=== PATIENT | male | born 1965 | race Two or more races ===

== ENCOUNTER 2017-01-02 17:21 | Inpatient (IN) | payer OTHER ==
--- NOTE | 2017-01-02 17:51 | EDPHY ---
H & P Stated Complaint: labs at pc/anemic/leg swelling/weak Source: Patient, Family, Nutrition Counselor Exam Limitations: Language barrier - Personal History Current Tetanus/Diphtheria Vaccine: Yes - Medical/Surgical History Hx Asthma: No Hx Chronic Respiratory Disease: No Hx Diabetes: Yes Hx Cardiac Disease: No Hx Renal Disease: Yes Hx Cirrhosis: No Hx Alcoholism: No Hx HIV/AIDS: No Hx Splenectomy or Spleen Trauma: No Other PMH: Diabetes - Social History Smoking Status: Never smoked Alcohol Use: None Drug Use: None Time Seen by Provider: 01/02/17 17:46 HPI/ROS: CHIEF COMPLAINT: Sent by [facility] HISTORY OF PRESENT ILLNESS: 51-year-old insulin-dependent diabetic presents to the emergency department sent by [facility]. Patient was seen yesterday for a 5 day history of weakness, leg swelling, fatigue and shortness of breath. Patient reports abdominal distention and black stools over the last 5 days. He reports a normal appetite, no nausea or vomiting, no abdominal pain, no diarrhea. Patient feels cold, subjective fevers and chills. No cough. Patient denies drinking alcohol, no drug use, he does not smoke cigarettes. Patient had labs drawn [facility] yesterday and they called him today telling him to come to the emergency department. Patient had a hemoglobin of 6.0 and a creatinine of 18. Potassium was 5.7. Patient reports difficulty breathing with lying flat. REVIEW OF SYSTEMS: A comprehensive 10 point review of systems is otherwise negative aside from elements mentioned in the history of present illness. (Eulalia Gonzalez) - Physical Exam Exam: Physical Exam Gen: Alert and Oriented, short of breath, pale HEENT: PERRL, dry mucous membranes NECK: No JVD CV: Tachycardic rate and regular rhythm PULM: Expiratory wheezes bilateral lower lobes ABDOMEN: soft, non tender to palpation, BS present BACK: No CVA tenderness NEURO: Neurologically grossly intact EXTREMITIES: Edema bilateral lower extremities SKIN: no rash or break in skin on exposed skin PSYCH: answers questions appropriately. (Eulalia Gonzalez) Constitutional: Initial Vital Signs Temperature (C) 36.6 C 01/02/17 17:38 Heart Rate 104 H 01/02/17 17:38 Respiratory Rate 22 H 01/02/17 17:38 Blood Pressure 161/106 H 01/02/17 17:38 O2 Sat (%) 96 01/02/17 17:38 O2 Delivery Mode Nasal Cannula O2 (L/minute) 2 Allergies/Adverse Reactions: No Known Allergies Allergy (Verified 01/02/17 17:38) Home Medications: Medication Instructions Recorded Famotidine [Pepcid] 40 mg PO DAILY #20 tab 01/19/12 Lisinopril [Zestril 10 mg] 10 mg PO DAILY 01/19/12 Prednisone 60 mg PO DAILY #12 01/19/12 metFORMIN HCL [Glucophage 500 mg 500 mg PO .ENTER W/MEAL 01/19/12 (*)] Medical Decision Making - Diagnostics Imaging: Chest x-ray independently reviewed by me Impression: Bibasilar consolidation with cardiomegaly and peribronchial thickening, which could be related to CHF or bronchitis with effusions and basilar atelectasis/pneumonia. Dictated By: Derrick Hdz MD (Eulalia Gonzalez) ED Course/Re-evaluation: 1899-Report passed on to Dr. Little at the end of my shift. (Eulalia Gonzalez) 1803: I did see and evaluate this patient. Patient here with acute renal failure BUN over 100 creatinine of 12 elevated potassium. Clinically on exam he does have evidence of anasarca and volume overload he is hemodynamically stable at this time. At this time I will be consulting Nephrology. Will obtain an EKG to evaluate for hyperacute T-waves. Patient be placed on full environmental monitoring technician for close monitoring. He is in no respiratory distress at this time. His main complaint is generalized weakness and bilateral lower extremity swelling. I-STAT blood work reviewed. Will obtain serum labs, he will be gently hydrated , will need a Coombs for strict ins and outs. Will need to be admitted for dialysis. May need blood transfusion.Patient is still making urine. Patient also reports black tarry stool. Will obtain a occult guaic stool and do rectal exam. Patient be typed and screen as he may need blood transfusion his hemoglobin is low. Critical Care: Total Critical Care Time Spent Managing this Patient: 65 Minutes. This time was spent Exclusively with this patient. This Care was exclusive of procedures. The Organ System/life at risk was Renal Failure. This Patient was in Critical Condition because renal failure, acidosis, electrolyte abnormality, anemia, uremia, hyperglycemia, hypertension 1818: Spoke with Nephrology: Dr. Cox, who would like a bladder scan done, Coombs placement, strict in and outs. Will see and evaluate the patient. EKG interpretation by me on record in [employer] system. Impression time of EKG 18 10, this is sinus tachycardia rate of 105, there is no acute peaked T- waves. There is no widended of intervals. 183: Spoke with Dr. Cox explained to him that there is only 78 cc in his bladder scan. Coombs will be placed. We will treat his hyperkalemia with 1 g of calcium, Kayexalate and bicarb. Chemistry is pending at this time. Occult blood is pending. Patient be admitted to PCU with full telemetry. No indication the patient needs ICU admission at this time. 184: Spoke with the hospitalist service Dr. Cotto who agrees to admit this patient to PCU with full telemetry. This time patient is hemodynamically stable no acute distress. Stable for admission to PCU. Nephrology has been consulted. Patient's hyperkalemia has been aggressively treated here in the emergency room with sodium bicarb, calcium, Kayexalate. (Lucio Little) - Data Points Laboratory Results: Laboratory Results 01/02/17 17:48 01/02/17 17:48 01/02/17 01/02/17 01/02/17 18:08 17:48 17:48 WBC RBC Hgb Hct MCV MCH MCHC RDW Plt Count MPV Neut % (Auto) Lymph % (Auto) [place] % (Auto) Eos % (Auto) Baso % (Auto) Nucleat RBC Rel Count Absolute Neuts (auto) Absolute Lymphs (auto) Absolute Monos (auto) Absolute Eos (auto) Absolute Basos (auto) Absolute Nucleated RBC Immature Gran % Immature Gran # Platelet Estimate Hypochromasia Microcytic Cells Oval Macrocytes Smear Review By PT INR Sodium 137 mEq/L mEq/L (134-144) Potassium 6.2 mEq/L H mEq/L (3.5-5.2) Chloride 103 mEq/L mEq/L (97-110) Carbon Dioxide 15 mEq/l L mEq/l (22-31) Anion Gap 19 mEq/L H mEq/L (8-16) BUN 154 mg/dL H* mg/dL (7-23) Creatinine 19.0 mg/dL H* mg/dL (0.7-1.3) Estimated GFR 3 Glucose 308 mg/dL H mg/dL (70-100) Calcium 5.1 mg/dL L* mg/dL (8.5-10.4) Total Bilirubin 0.5 mg/dL mg/dL (0.1-1.4) Conjugated Bilirubin 0.5 mg/dL mg/dL (0.0-0.5) Unconjugated Bilirubin 0.0 mg/dL mg/dL (0.0-1.1) AST 44 IU/L IU/L (17-59) ALT 47 IU/L IU/L (21-72) Alkaline Phosphatase 90 IU/L IU/L (38-126) Total Protein 6.1 g/dL L g/dL (6.3-8.2) Albumin 3.1 g/dL L g/dL (3.5-5.0) Stool Occult Bld Scrn NEGATIVE (NEGATIVE) Patient ABO/Rh AB POSITIVE Antibody Screen NEGATIVE 01/02/17 01/02/17 17:48 17:48 WBC 9.42 10^3/uL 10^3/uL (3.80-9.50) RBC 2.02 10^6/uL L 10^6/uL (4.40-6.38) Hgb 6.2 g/dL L g/dL (13.7-17.5) Hct 18.5 % L % (40.0-51.0) MCV 91.6 fL fL (81.5-99.8) MCH 30.7 pg pg (27.9-34.1) MCHC 33.5 g/dL g/dL (32.4-36.7) RDW 13.6 % % (11.5-15.2) Plt Count 269 10^3/uL 10^3/uL (150-400) MPV 9.3 fL fL (8.7-11.7) Neut % (Auto) 67.4 % % (39.3-74.2) Lymph % (Auto) 11.0 % L % (15.0-45.0) Pinal % (Auto) 7.0 % % (4.5-13.0) Eos % (Auto) 13.7 % H % (0.6-7.6) Baso % (Auto) 0.3 % % (0.3-1.7) Nucleat RBC Rel Count 0.0 % % (0.0-0.2) Absolute Neuts (auto) 6.34 10^3/uL 10^3/uL (1.70-6.50) Absolute Lymphs (auto) 1.04 10^3/uL 10^3/uL (1.00-3.00) Absolute Monos (auto) 0.66 10^3/uL 10^3/uL (0.30-0.80) Absolute Eos (auto) 1.29 10^3/uL H 10^3/uL (0.03-0.40) Absolute Basos (auto) 0.03 10^3/uL 10^3/uL (0.02-0.10) Absolute Nucleated RBC 0.00 10^3/uL 10^3/uL (0-0.01) Immature Gran % 0.6 % % (0.0-1.1) Immature Gran # 0.06 10^3/uL 10^3/uL (0.00-0.10) Platelet Estimate ADEQUATE (ADEQ) Hypochromasia 1+ H Microcytic Cells 1+ H Oval Macrocytes 1+ H Smear Review By Pending PT 16.0 SEC H SEC (12.0-15.0) INR 1.28 H (0.83-1.16) Sodium Potassium Chloride Carbon Dioxide Anion Gap BUN Creatinine Estimated GFR Glucose Calcium Total Bilirubin Conjugated Bilirubin Unconjugated Bilirubin AST ALT Alkaline Phosphatase Total Protein Albumin Stool Occult Bld Scrn Patient ABO/Rh Antibody Screen Medications Given: Discontinued Medications Sodium Polystyrene Sulfonate (Kayexalate) 15 gm PO EDNOW ONE Stop: 01/02/17 18:33 Last Admin: 01/02/17 18:40 Dose: 15 gm Departure - Departure Disposition: [facility] Acute Clinical Impression: Hyperkalemia, Uremia Renal failure, acute Qualifiers: Acute renal failure type: unspecified Qualified Code(s): N17.9 - Acute kidney failure, unspecified Volume overload Qualifiers: Hypervolemia type: other Qualified Code(s): E87.79 - Other fluid overload Condition: Critical Referrals: [facility] [Other] - As per Instructions
[2017-01-02 18:02] LABS: % IMMATURE GRANULYOCYTES 0.6 % (0.0-1.1); ABSOLUTE IMMATURE GRANULOCYTES 0.06 10^3/uL (0.00-0.10); ADD DIFF? NO; ADD MORPH? YES; ADD SCAN? NO; ATYPICAL LYMPHOCYTE FLAG 0 (0-99); FRAGMENT RBC FLAG 0 (0-99); HEMATOCRIT 18.5 % (40.0-51.0); LEFT SHIFT FLG 0 (0-99); LIPEMIA HEMOLYSIS FLAG 80 (0-99); MEAN CELL HEMOGLOBIN 30.7 pg (27.9-34.1); MEAN CELL HEMOGLOBIN CONCENTR. 33.5 g/dL (32.4-36.7); MEAN CELL VOLUME 91.6 fL (81.5-99.8); MEAN PLATELET VOLUME 9.3 fL (8.7-11.7); PLATELET CLUMPS FLAG 0 (0-99); PLATELET COUNT 269 10^3/uL (150-400); RED BLOOD CELL COUNT 2.02 10^6/uL (4.40-6.38); RED CELL DISTRIBUTION WIDTH 13.6 % (11.5-15.2)
[2017-01-02 18:04] LABS: HEMOGLOBIN 6.2 g/dL (13.7-17.5)
[2017-01-02] MEDS ORDERED: HEPARIN 50,000 UNIT/10 ML VIAL ONE (18:05)
[2017-01-02 18:10] LABS: INR 1.28 (0.83-1.16)
--- NOTE | 2017-01-02 18:12 | CPEKG ---
Heart Rate: 105 RR Interval: 571 P-R Interval: 120 QRSD Interval: 86 QT Interval: 384 QTC Interval: 508 P [place]: 73 QRS [place]: 78 T Wave [place]: 20 EKG Severity - ABNORMAL ECG - EKG Impression: SINUS TACHYCARDIA EKG Impression: PROLONGED QT INTERVAL Electronically Signed By: Binh Johnston 04-Jan-2017 14:43:42
[2017-01-02] MEDS ORDERED: LIDOCAINE 2% JELLY 20 ML (UROJECT) ONE (18:18)
[2017-01-02 18:25] LABS: ALANINE AMINOTRANSFERASE 47 IU/L (21-72); ALBUMIN 3.1 g/dL (3.5-5.0); ALKALINE PHOSPHATASE 90 IU/L (38-126); ANION GAP 19 mEq/L (8-16); ASPARTATE AMINOTRANSFERASE 44 IU/L (17-59); BILIRUBIN,TOTAL 0.5 mg/dL (0.1-1.4); BILIRUBIN-CONJUGATED 0.5 mg/dL (0.0-0.5); CARBON DIOXIDE 15 mEq/l (22-31); CHLORIDE 103 mEq/L (97-110); GLUCOSE 308 mg/dL (70-100); POTASSIUM 6.2 mEq/L (3.5-5.2); SODIUM 137 mEq/L (134-144); TOTAL PROTEIN 6.1 g/dL (6.3-8.2)
[2017-01-02] MEDS ORDERED: SODIUM POLY SULF 15 GM/60 ML BOTTLE PO ONE (18:32)
[2017-01-02] MEDS ORDERED: CALCIUM GLUCONATE 50 ML IV ONE ×2 (18:32→18:39)
[2017-01-02] MEDS ORDERED: SODIUM BICARBONATE 50 MEQ/50 ML SYR IVP ONE (18:32)
[2017-01-02 18:37] LABS: GLOMERULAR FILTRATION RATE 3
[2017-01-02 18:38] LABS: CALCIUM 5.1 mg/dL (8.5-10.4)
[2017-01-02 18:41] LABS: MACROCYTES 1+; MICROCYTES 1+; PLATELET ESTIMATE ADEQUATE (ADEQ)
[2017-01-02 18:42] LABS: HYPOCHROMIA 1+
[2017-01-02] MEDS ORDERED: ACETAMINOPHEN 325 MG TAB PO PRN (19:08)
[2017-01-02] MEDS ORDERED: ONDANSETRON 4 MG/2 ML VIAL IVP PRN (19:08)
[2017-01-02] MEDS ORDERED: hydrALAZINE 25 MG TAB PO PRN (20:47)
[2017-01-02] MEDS ORDERED: diphenhydrAMINE 25 MG CAP PO PRN (21:04)
[2017-01-02] MEDS ORDERED: D50W 25 GM/50 ML SYR IVP PRN (22:07)
[2017-01-02 22:15] LABS: % SATURATION 23 % (20-55); TOTAL IRON BINDING CAPACITY 226 ug/dL (260-490)
[2017-01-02 22:17] LABS: TROPONIN I 0.039 ng/mL (0-0.034)
--- NOTE | 2017-01-02 22:19 | GHP ---
DATE OF ADMISSION: 01/02/2017 CHIEF COMPLAINT: Acute on suspected chronic renal failure. HISTORY OF PRESENT ILLNESS: Patient is a 51-year-old male with history of diabetes, on insulin, hypertension, and hyperlipidemia, presenting with 1-week symptoms including fatigue, volume overload, and shortness of breath. Approximately a week ago, he began noticing increased fatigue, nausea, vomiting with nonbloody emesis. He has had increased orthopnea and PND. He feels better when walking around. He has a small amount of blood if he blows his nose. Denies hematemesis, hematochezia, or hematuria. Reports black stools for 1 week. He has had normal urinary output. Has had increased itchiness. Per his , he has been more confused over this time period. Denies any NSAID use. Up to 8 days ago, he was able to play sports with his kids including basketball and football. But is unable to given these new symptoms. Denies fevers, chills , or sweats. Dry cough when lying flat. Denies chest pain. REVIEW OF SYSTEMS: I completed a 10-point review of systems, negative except as noted in HPI. PAST MEDICAL HISTORY: 1. Type 1 diabetes 18 years ago, on insulin. 2. Hypertension. 3. Hyperlipidemia. FAMILY HISTORY: Mother with diabetes. SOCIAL HISTORY: Lives in [place] with his and son. Works in a [employer] at the [employer]. No tobacco, alcohol, or illicits. MEDICATIONS: Lantus 55 units in the morning. He is on an antihypertensive and medicine for his lipids but does not know dosage. ALLERGIES: Denies. PAST SURGICAL HISTORY: None. PHYSICAL EXAM: VITAL SIGNS: Temperature 37.4. Blood pressure on admission 161 /106, now 164/85. Heart rate in the 100s, respirations 20, 94% on 2 L, 90 on room air. GENERAL: Patient is very fatigued, ill appearing, pale. HEENT: JERSON. EOMI. Oropharynx clear. Conjunctival pallor. CV: Tachy, regular. No murmurs, gallops, or rubs. Elevated JVD. }+2-3 pitting edema BL legs up to thighs LUNGS: Diminished at bases. ABDOMEN: Distended, soft, nontender. Positive bowel sounds. : Coombs in place with clear urine. No suprapubic tenderness. SKIN: Warm, dry. Excoriations scabbed over, no evidence of infection. NEURO: 2-12 intact. Mild asterixis. Alert and oriented x3. Slow to answer questions. LABS: INR 1.2, PT 16. Sodium 137, potassium 6.2, chloride 105, carbon dioxide 15, anion gap 19, BUN 159, creatinine 19, glucose 308. Calcium 5.1, phosphorus 12.7. Albumin 3.1, total protein 6.1, AST and ALT 44 and 47. WBC 9, hemoglobin 6.2, hematocrit 18, platelets 269. Fecal occult blood negative. EKG personally reviewed by me, normal sinus rhythm, mild T-waves anterior leads. Chest x-ray personally reviewed by me, blunting of costophrenic angles as well as mild interstitial edema. ASSESSMENT/PLAN: 1. Acute on presumed chronic kidney disease: suspect this is secondary to underlying diabetes, hypertension. Dr. Valencia with Nephrology has evaluated patient this evening. Will plan for dialysis catheter placement in the morning to initiate dialysis. Will check additional studies including phos, urine studies, daily renal function. Renal US pending. Plan for renal biopsy when more stable and less risk for bleeding. 2. Acute hypoxic respiratory failure: due to volume overload with ARF, but will also check TTE. HD initiation tomorrow. No evidence of pneumonia on x-ray or infectious symptoms. 3. Symptomatic normocytic anemia: likely due to CKD and dilutional anemia with significant overload. Has had small amounts of blood with blowing nose and black stools. FOBT negative. Check iron studies. Transfuse 1 unit RBC tonight since symptomatic; caution given volume overload. Additional blood in morning with dialysis. 4. Symptomatic uremia: Nausea, vomiting this week. P.r.n. antiemetics and Benadryl as needed. 5. Severe hyperkalemia: Potassium was elevated 6.2 with mild T-waves on EKG. Patient received calcium, bicarb, and Kayexalate. Monitor on telemetry 6. Hypocalcemia: check Vit D and PTH 7. Accelerated HTN: volume contributing. Hydralazine PRN 8. Fatigue: multifactorial, but anemia significant. Plan as above 9. Metabolic acidosis: due to ARF; should improve with HD. 10. Uncontrolled diabetes: did not take Lantus today. Resume tomorrow in AM at reduced dose with ARF to avoid hypoglycemia. 11.Diet. Renal with 2 L fluid restriction. 12. DVT prophylaxis. SCDs. 13. Patient warrants admission to the SCU given severe hyperkalemia placing him at risk for arrhythmia. Monitor on telemetry and plan for HD in the morning. /[id number]/MODL MTDD
--- NOTE | 2017-01-02 22:44 | GCON ---
DATE OF CONSULTATION: 01/02/2017 REASON FOR CONSULTATION: Opinion regarding acute kidney injury. HISTORY OF PRESENT ILLNESS: This patient is a very pleasant 51-year-old gentleman with no prior his tory of chronic kidney disease. He has had diabetes mellitus type 2 for 18 years. Over the course of the past week or so, the patient complains of increasing fatigue, shortness of breath, particular ly when lying flat, cough without sputum production, hemoptysis, hematemesis, epistaxis, abdominal p ain. He has had some nausea and vomiting, as well as passing black stools for the last couple of da ys. He has not had fevers, chills, blurry vision, double vision, headache. He has had orthopnea, n o paroxysmal nocturnal dyspnea, palpitations, syncope, diminished urine output, gross hematuria, dys uria, diarrhea or constipation, rash, arthritis, arthralgias, myalgias, and has not been using aspir in or nonsteroidal antiinflammatory drugs. He is currently on no blood thinners. PAST MEDICAL HISTORY: 1. Diabetes mellitus type 2 for 18 years. 2. Hyperlipidemia. MEDICATIONS: He is on 5 medicines, but is not sure what they are. ALLERGIES: None. FAMILY HISTORY: Positive for diabetes, but negative for renal failure. SOCIAL HISTORY: The patient is . He has 3 children. He has been for 20 years. His oldest is 18 and is a senior at [employer]. 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 He enjoys sports, including soccer, basketball, and baseball. Up until a week ago, he was very acti ve. REVIEW OF SYSTEMS: A complete 12-point review of systems was reviewed and pertinent positives and n egatives are as per the previous sections. He was also complaining of itching over the course of th e past week. PHYSICAL EXAMINATION: GENERAL: He is awake, alert, cooperative. He is ill-appearing. HEENT: Pup ils are reactive to light. Extraocular movements are intact. Mucous membranes are moist. NECK: M ild JVD, no lymphadenopathy or thyromegaly. HEART: Tachycardic, regular, no rub, no S3. LUNGS: R ales and wheezes bilaterally. ABDOMEN: Bowel sounds are positive, soft, nontender, nondistended. No obvious organomegaly, masses, or bruits. EXTREMITIES: Positive for edema. He has several bruis es in his lower extremities. NEUROLOGIC: No asterixis. Moves all his extremities. LYMPHATIC: No palpable lymphadenopathy or lymphedema. MUSCULOSKELETAL: No effusions or tenderness. LABORATORY VALUES: WBC 9.4, hemoglobin 6.2, hematocrit 18.5, platelet count 269,000, eosinophils ab solute 1.29, which are elevated, and that is 13.7% overall. INR 1.28. PT of 16.0. Serum sodium 13 7, potassium 6.2, chloride 103, CO2 15, anion gap of 19, BUN 154, creatinine 19, eGFR of 3 cc/min, g lucose 308, calcium 5.1, phosphorus 12.7, AST 44, ALT 47, albumin 3.1, total protein 6.1. Fecal occ ult blood negative. DATA REVIEWED: Chest x-ray was obtained, showing basilar consolidation with cardiomegaly and peribr onchial thickening, which could be related to either congestive heart failure or bronchitis. He als o has basilar atelectasis and/or pneumonia. IMPRESSION: 1. Acute kidney injury, question chronic kidney disease, particularly in light of his serum creatin ine of 19. 2. Anemia. 3. Uremic symptoms but no pericarditis. 4. Diabetes mellitus type 2. Blood sugar today is 308. 5. Tachycardia. RECOMMENDATIONS: 1. Counseled the patient regarding the need of dialysis. I have explained the risks and benefits, and he wishes to proceed. 2. Will have Radiology place a temporary hemodialysis catheter in the morning and proceed with dial ysis tomorrow. 3. I have counseled the patient regarding percutaneous kidney biopsy with its attendant risks and b enefits, including infection, bleeding, need for blood transfusion, gross hematuria, need for surgic al or radiologic repair of a damaged kidney, a nephrectomy, and . I have counseled the patient that I wound not do percutaneous kidney biopsy on someone who has been taking aspirin or other anti coagulants, and we do need to know what his medications at home have been. Also, he is at increased risk of bleeding with a hemoglobin of 6.2; he will need transfusions. It sounds like he will be ge tting a unit of blood tonight and will plan on giving him 2 units of blood on dialysis tomorrow. 4. We will work him up for possible glomerulonephritis or paraproteinemia. 5. Work up his anemia. 6. We will continue to follow his electrolytes, volume status, and renal function. 7. All questions were answered to his, his son's, and his 's satisfaction. 8. The patient speaks very little Luxembourgish, and I speak no Sami, and so all of the interview was done via an acute care occupational therapist. Thank you for allowing me to participate in the case of your patient. If there are any questions, devendra winters do not hesitate to contact us. We will be following along with you. /[id number]/MODL
[2017-01-02 22:45] LABS: CK-MB INTERPRETATION NEGATIVE (NEGATIVE)
[2017-01-02 22:54] LABS: BASE EXCESS -10.1 mEq/L (-2.5-2.5); BICARBONATE 14 mEq/L (22-26); MEASURED OXYGEN SATURATION 96 % (92-95); PCO2 26 mmHg (34-38); PO2 85 mmHg (65-75); TCO2 15 mEq/L (23-27)
[2017-01-03 01:48] LABS: HEPATITIS B SURFACE ANTIBODY NEGATIVE (NEGATIVE)
[2017-01-03 01:50] LABS: COLOR PALE YELLOW; LEUKOCYTE ESTERASE,URINE NEGATIVE (NEGATIVE); NITRITE,URINE NEGATIVE (NEGATIVE)
[2017-01-03 01:53] LABS: MUCUS TRACE /lpf (NONE-1+); RBC,URINE 15-25 /hpf (0-3)
[2017-01-03 05:59] LABS: % IMMATURE GRANULYOCYTES 0.5 % (0.0-1.1); ABSOLUTE IMMATURE GRANULOCYTES 0.05 10^3/uL (0.00-0.10); ADD DIFF? NO; ADD MORPH? YES; ADD SCAN? NO; ATYPICAL LYMPHOCYTE FLAG 0 (0-99); FRAGMENT RBC FLAG 0 (0-99); LEFT SHIFT FLG 0 (0-99); LIPEMIA HEMOLYSIS FLAG 80 (0-99); MEAN CELL HEMOGLOBIN CONCENTR. 33.3 g/dL (32.4-36.7); MEAN CELL VOLUME 93.1 fL (81.5-99.8); MEAN PLATELET VOLUME 9.3 fL (8.7-11.7); PLATELET CLUMPS FLAG 0 (0-99); PLATELET COUNT 220 10^3/uL (150-400); RED BLOOD CELL COUNT 1.74 10^6/uL (4.40-6.38); RED CELL DISTRIBUTION WIDTH 13.5 % (11.5-15.2)
[2017-01-03 06:05] LABS: HEMOGLOBIN 5.4 g/dL (13.7-17.5)
[2017-01-03 06:06] LABS: HEMATOCRIT 16.2 % (40.0-51.0)
[2017-01-03 06:29] LABS: ALBUMIN 2.6 g/dL (3.5-5.0); ANION GAP 19 mEq/L (8-16); CARBON DIOXIDE 16 mEq/l (22-31); CHLORIDE 106 mEq/L (97-110); GLUCOSE 147 mg/dL (70-100); POTASSIUM 5.6 mEq/L (3.5-5.2); SODIUM 141 mEq/L (134-144); URIC ACID 10.1 mg/dL (3.5-8.5)
[2017-01-03 06:35] LABS: PLATELET ESTIMATE ADEQUATE (ADEQ)
[2017-01-03 06:38] LABS: HYPOCHROMIA 3+; MICROCYTES 1+
[2017-01-03 06:41] LABS: PTH INTACT NO MINERALS 659.9 pg/ml (10.8-79.4)
[2017-01-03 06:56] LABS: GLOMERULAR FILTRATION RATE 3; VITAMIN D 25-HYDROXY TOTAL < 12.8 ng/mL (30-100)
[2017-01-03 06:59] LABS: CALCIUM 5.1 mg/dL (8.5-10.4)
[2017-01-03] MEDS ORDERED: INSULIN LISPRO 100 UNIT/ML SC SCH (08:00)
[2017-01-03] MEDS ORDERED: HEPARIN 50,000 UNIT/10 ML VIAL ONE ×2 (08:18→16:53)
[2017-01-03] MEDS ORDERED: CALCIUM GLUCONATE 2 GM in D5W 50 ML IV ONE (08:53)
[2017-01-03] MEDS ORDERED: INSULIN GLARGINE 100 UNITS/ML SYRINGE SC SCH (09:00)
[2017-01-03] MEDS: INSULIN LISPRO 100 UNIT/ML SC SCH ×3 (09:22→18:05)
--- NOTE | 2017-01-03 10:27 | SOAPPROG ---
SOAP Progress Note Assessment/Plan: Assessment/Plan: JOAN: likely has CKD given his longstanding diabetes as well as elevated PTH, although previous Cr and renal history unknown. Pt with some uremic symptoms, presenting with Cr of 19. - First HD today. - HD again tomorrow. - Serological workup pending. - Renal US reviewed, no hydronephrosis. - Will continue to discuss with him regarding renal biopsy, he is still a bit confused to process. Will first dialyze through the weekend and discuss again when mental status improved. - Avoid MOM, morphine, demerol, NSAIDs, contrast, aminoglycosides, fleets, ACEI /ARB, and other nephrotoxins. - Please avoid giving any NSAIDs or blood thinners in case biopsy is pursued next week. Anemia: Hgb down to 5.4. Getting 2 units PRBCs today on HD. Will continue to monitor. Hyperkalemia: will modulate on HD. Metabolic acidosis: will modulate on HD. JAMES: Pt with elevated PTH >600, phos of 12, and corrected calcium of around 6.1. - Will modulate on HD to reduce phos and increase calcium. - Will start on calcium containing phos binder. - Would be cautious about correcting calcium too quickly in setting of high phos. - Will continue to monitor. Subjective: No acute events overnight. Pt had dialysis catheter placed this am. He is now starting to be transfused first unit PRBCs. He states he is breathing comfortably, only pain is at catheter site. Objective: Vital Signs Temp Pulse Resp BP Pulse Ox 36.7 C 103 H 17 158/86 H 93 01/03/17 08:00 01/03/17 08:00 01/03/17 08:00 01/03/17 08:00 01/03/17 08:00 Laboratory Results 01/03/17 05:45 01/03/17 05:45 01/02/17 01/03/17 01/04/17 05:59 05:59 05:59 Intake Total 600 Output Total 550 Balance 50 PT 16.0 SEC (12.0-15.0) H 01/02/17 17:48 INR 1.28 (0.83-1.16) H 01/02/17 17:48 General: alert and oriented, no acute distress Eyes; EOMI, PERRL OP: Clear CV: RRR Resp: nonlabored respirations on NC Abd: Soft, NT Ext: +trace edema BLE Neuro: CN II-XII grossly intact Psych: cooperative, appropriate mood and affect, slightly confused Access: RIJ catheter ICD10 Worksheet Patient Problems: Problems Problem Status Onset Hyperkalemia Acute Renal failure, acute Acute Uremia Acute Volume overload Acute
--- NOTE | 2017-01-03 11:36 | ECHO ---
[id number] + + [address] : : [place] [address] : : [phone] + + Adult Echocardiographic Report + + :Name: Eagle JHA Date: 01/03/2017 07:54 AM : : Hospital Admission Number: [id number] L ocation: 243: :: 1965 Gender: Male Height: 6 2 in : :Age: 51 yrs Race: [facility] Weight: 2 01 lb : :Reason For Study: Eval LV Fx : : BSA: 1.9 meters2 : :History: Fluid overload, CHF : + + MMode/2D Measurements \T\ Calculations IVSd: 0.95 cm LVIDd: 5.1 cm FS: 36.7 % Ao root diam: 3.5 cm LVPWd: 1.1 cm LVIDs: 3.2 cm EDV(Teich): 125.2 ml ACS: 2.0 cm ESV(Teich): 42.4 ml LA dimension: 4.8 cm EF(Teich): 66.2 % Normal Measurement Values: + + :LVIDd (3.5-5.7cm) IVSd (0.6-1.1cm) LVPWd (0.6-1.1cm) Aortic Root (2.0-3.7cm)Left Atrium (1.5-4.0cm): :LV Vol(d) (76-115ml) LV Vol(s) (29-48ml) Ejec Fraction (50-65%)PV Juan David (0.6- 1.2m/s) TV Juan David (0.4-1.0m/s) : :MV E Juan David (0.8-1.0m/s)MV A Juan David (0.3-1.0m/s)LVOT Juan David (0.7-1.2m/s) Asc Ao Juan David ( 0.9-1.8m/s) : + + Doppler Measurements \T\ Calculations MV E max juan david: Ao V2 max: LV V1 max: MR max juan david: 124.4 cm/sec 158.7 cm/sec 104.1 cm/sec 459.4 cm/sec MV A max juan david: Ao max PG: LV V1 max PG: MR max P.2 cm/sec 10.1 mmHg 4.3 mmHg 84.4 mmHg MV E/A: 1.2 PA V2 max: TR max juan david: 112.7 cm/sec 325.8 cm/sec PA max P.1 mmHg TR max P.5 mmHg RAP systole: 5.0 mmHg RVSP(TR): 47.5 mmHg Left Ventricle The left ventricle is normal in size. There is normal left ventricular wall thickness. The left ventricular ejection fraction is normal. There is Doppler evidence for diastolic dysfunction. Ejection Fraction = 66%. Elevated LV filling pressures. The left ventricular wall motion is normal. Right Ventricle The right ventricle is normal in size and function. Atria The left atrial size is normal. Right atrial size is normal. Mitral Valve The mitral valve is normal in structure and function. There is no evidence of mitral valve prolapse. There is no mitral valve stenosis. There is trace mitral regurgitation. Tricuspid Valve Normal tricuspid valve. There is mild tricuspid regurgitation. Unable to assess PA systolic pressure. Aortic Valve The aortic valve is normal in structure and function. The aortic valve is trileaflet. There is no aortic stenosis. There is no aortic insufficiency. Pulmonic Valve The pulmonic valve is normal in structure and function. There is no pulmonic valvular regurgitation. Great Vessels The aortic root is normal size. Pericardium/Pleural There is no pericardial effusion. Conclusion A complete two-dimensional transthoracic echocardiogram was performed (2D, M-mode, Doppler and color flow Doppler). The left ventricular ejection fraction is normal. Ejection Fraction = 66%. The left ventricular wall motion is normal. There is Doppler evidence for diastolic dysfunction. Elevated LV filling pressures The mitral valve is normal in structure and function. There is trace mitral regurgitation. There is mild tricuspid regurgitation. Unable to assess PA systolic pressure The aortic valve is normal in structure and function. The aortic valve is trileaflet. There is no pericardial effusion. Final Reading Physician: Dr Dorothy Waldron electronically signed on 01/03/2017 11:34 AM Ordering Physician: Jose Alberto Valencia Performed By: Roger Gilliland, GILACS
[2017-01-03 12:51] LABS: ANTINUCLEAR ANTIBODIES SCREEN 0.13 UNITS (<1.00)
[2017-01-03] MEDS: METOPROLOL TARTRATE 100 MG TAB PO SCH ×3 (13:29→21:24)
[2017-01-03 14:00] LABS: EOSMR EPITHELIAL CELLS FEW EPITH CELLS; EOSMR PMNS MANY PMN CELLS; EOSMR RBCS MODERATE RBCS
[2017-01-03 14:01] LABS: EOSMR EOSINOPHILS NO EOS SEEN (NO EOS SEEN)
[2017-01-03] MEDS: CALCIUM ACETATE 667 MG CAP PO SCH ×2 (14:34→17:20)
--- NOTE | 2017-01-03 15:04 | HOSPPROG ---
Hospitalist Progress Note Assessment/Plan: * acute on most likely chronic kidney disease * urine with possibly active sediment * plans for possible biopsy in the next few days * getting dialysis * anemia * normal iron studies * will check guaiacs * getting 2 units of packed red blood cells * type 1 diabetes * restart home dosing of insulin * hypertension * restart beta-natan * hypocalcemia * secondary hyperparathyroidism * vitamin-D deficient * DVT prophylaxis - heparin Subjective: feels okay. No new complaints Objective: Vital Signs Temp Pulse Resp BP Pulse Ox 36.7 C 93 14 154/81 H 100 01/03/17 08:00 01/03/17 14:00 01/03/17 14:00 01/03/17 14:00 01/03/17 14:00 Laboratory Results 01/03/17 05:45 01/03/17 05:45 01/02/17 01/03/17 01/04/17 05:59 05:59 05:59 Intake Total 600 Output Total 550 Balance 50 PT 16.0 SEC (12.0-15.0) H 01/02/17 17:48 INR 1.28 (0.83-1.16) H 01/02/17 17:48 - Physical Exam Constitutional: no apparent distress, appears nourished, not in pain Eyes: anicteric sclera, EOMI Ears, Nose, Mouth, Throat: moist mucous membranes, hearing normal Cardiovascular: regular rate and rhythym, no murmur, rub, or gallop, edema ( 1+) Respiratory: no respiratory distress, no rales or rhonchi, clear to auscultation Gastrointestinal: normoactive bowel sounds, soft, non-tender abdomen, no palpable masses Skin: warm Neurologic: AAOx3 Psychiatric: interacting appropriately, not anxious, not encephalopathic, thought process linear ICD10 Worksheet Patient Problems: Problems Problem Status Onset Hyperkalemia Acute Renal failure, acute Acute Uremia Acute Volume overload Acute
[2017-01-03 16:11] LABS: HEMATOCRIT 25.1 % (40.0-51.0); HEMOGLOBIN 8.5 g/dL (13.7-17.5)
--- NOTE | 2017-01-03 16:25 | GCON ---
PULMONARY/CRITICAL CARE CONSULTATION DATE OF CONSULTATION: 01/03/2017 REFERRING PHYSICIAN: Brock Bertrand MD REASON FOR CONSULTATION: Evaluation and management of anemia and edema. HISTORY: The patient is a 51-year-old male with a longstanding history of type 1 diabetes and hyper tension, who was admitted to the hospital yesterday with a 1-week history of fatigue, shortness of b reath and edema. He had some nausea and vomiting at the beginning of this set of symptoms. During the last few days he started to have orthopnea and pruritus, and also began to get a bit more confus ed. He denies any fevers or chills. He has no chest pain. PAST MEDICAL HISTORY: 1. Type 1 diabetes, diagnosed 18 years ago, on insulin. 2. Hypertension. 3. Hyperlipidemia. MEDICATIONS: Lantus 55 units in the morning. He is also on Lasix, Tradjenta, atorvastatin and meto prolol. ALLERGIES: None. SOCIAL HISTORY: The patient lives in [place] with his and son. He works at [employer]. He denies any smoking or alcohol. FAMILY HISTORY: Positive for diabetes in his mother. REVIEW OF SYSTEMS: Complete review of systems adds nothing to the history of present illness. PHYSICAL EXAMINATION: GENERAL: The patient is awake, alert and in no acute distress at rest, lying in bed. VITAL SIGNS: His blood pressure is 154/81 with a pulse of 93. He is afebrile. Oxygen sa turations 100% on 2 L. HEENT: Normocephalic and atraumatic. No icterus. NECK: No JVD. Trachea is midline. CHEST: Clear to auscultation. CARDIAC: Regular rate and rhythm without murmur. ABDO MEN: Soft, nontender. Bowel sounds are present. EXTREMITIES: No clubbing or cyanosis. He has 1+ anasarca. LABORATORY: Sodium is 141, with potassium of 5.6. BUN is 155 with a creatinine of 19.0. Calcium i s 5.1, PTH is 660. Hemoglobin is 5.4, down from 6.2. White blood count is 9.7. INR is 1.3. Arter ial blood gas shows a pH of 7.35, with a pO2 of 85, a CO2 of 26, and a bicarbonate of 15 on 2 L of o xygen. Anion gap is 19. Urinalysis shows 3+ protein, and 15-25 red blood cells, with 5-10 white blood cells. There is 3+ gl ucose. Chest x-ray shows basilar consolidation with cardiomegaly, early changes of pulmonary edema. Images reviewed. Ultrasound of the abdomen and pelvis demonstrates no hydronephrosis with echogenic kidneys. ASSESSMENT: 1. Acute renal failure. This is likely acute on chronic with risks factors of diabetes and hyperte nsion. The markedly elevated creatinine and anemia suggests that this may have been going on for qu ite a while. He presented with fluid overload. He has just been diuresed and transfused, and is fe eling a bit better, with less shortness of breath and a bit less swelling. 2. Anemia. The patient has normocytic anemia with normal iron level and iron saturation. His TIBC is low at 226. This most likely is due to chronic renal insufficiency with reduced Epogen producti on related to renal disease. Acute volume expansion could contribute. There is no history of acute blood loss. The patient does not have iron deficiency. He has received 3 units of packed red bloo d cells. A repeat H and H is pending. 3. Dyspnea and edema. This is likely due to fluid overload. He feels a bit better, although he sanchez s only had 1-1/2 L of fluid taken off by his first dialysis run. 4. Hypertension. The patient has chronic hypertension and is hypertensive now. He usually takes m etoprolol, but has not been given this yet. RECOMMENDATIONS: 1. Repeat H and H. 2. Resume metoprolol to help with hypertension. 3. The patient will be dialyzed again tomorrow. 4. Consideration is being given to doing a renal biopsy. /[id number]/MODL
[2017-01-03 17:12] LABS: ALBUMIN 2.4 g/dL (3.5-5.0); ANION GAP 15 mEq/L (8-16); CARBON DIOXIDE 18 mEq/l (22-31); CHLORIDE 103 mEq/L (97-110); GLUCOSE 137 mg/dL (70-100); POTASSIUM 4.2 mEq/L (3.5-5.2); SODIUM 136 mEq/L (134-144)
[2017-01-03] MEDS: INSULIN ASPART NovoLOG 70/30 100 UNITS/ML SYR SC SCH (17:20)
[2017-01-03 17:52] LABS: GLOMERULAR FILTRATION RATE 4
[2017-01-03 17:54] LABS: CALCIUM 5.7 mg/dL (8.5-10.4); CREATININE 14.6 mg/dL (0.7-1.3)
[2017-01-03] MEDS: D50W 25 GM/50 ML SYR IVP PRN ×4 (20:04→23:13)
[2017-01-03] MEDS: D10W 1,000 ML IV SCH (21:00)
[2017-01-03] MEDS: ATORVASTATIN CALCIUM 40 MG TAB PO SCH (21:24)
[2017-01-03] MEDS: HEPARIN 5,000 UNIT/0.5 ML SYR SC SCH (21:24)
[2017-01-03] MEDS ORDERED: SODIUM CL NASAL 45 ML BTL EACHNARE PRN (23:30)
[2017-01-04] MEDS: D50W 25 GM/50 ML SYR IVP PRN ×4 (00:20→07:35)
[2017-01-04] MEDS: HEPARIN 5,000 UNIT/0.5 ML SYR SC SCH ×3 (05:11→20:57)
[2017-01-04 06:17] LABS: ALBUMIN 2.7 g/dL (3.5-5.0); ANION GAP 16 mEq/L (8-16); CARBON DIOXIDE 19 mEq/l (22-31); CHLORIDE 103 mEq/L (97-110); GLUCOSE 84 mg/dL (70-100); POTASSIUM 4.5 mEq/L (3.5-5.2); SODIUM 138 mEq/L (134-144)
[2017-01-04 06:23] LABS: % IMMATURE GRANULYOCYTES 0.5 % (0.0-1.1); ABSOLUTE IMMATURE GRANULOCYTES 0.05 10^3/uL (0.00-0.10); ADD DIFF? NO; ADD MORPH? NO; ADD SCAN? NO; ATYPICAL LYMPHOCYTE FLAG 0 (0-99); FRAGMENT RBC FLAG 0 (0-99); HEMATOCRIT 26.2 % (40.0-51.0); HEMOGLOBIN 9.1 g/dL (13.7-17.5); LEFT SHIFT FLG 0 (0-99); LIPEMIA HEMOLYSIS FLAG 90 (0-99); MEAN CELL HEMOGLOBIN 30.3 pg (27.9-34.1); MEAN CELL HEMOGLOBIN CONCENTR. 34.7 g/dL (32.4-36.7); MEAN CELL VOLUME 87.3 fL (81.5-99.8); MEAN PLATELET VOLUME 9.7 fL (8.7-11.7); PLATELET CLUMPS FLAG 0 (0-99); PLATELET COUNT 206 10^3/uL (150-400); RED CELL DISTRIBUTION WIDTH 14.3 % (11.5-15.2)
[2017-01-04 06:26] LABS: GLOMERULAR FILTRATION RATE 3
[2017-01-04 06:29] LABS: CALCIUM 5.6 mg/dL (8.5-10.4)
[2017-01-04] MEDS: INSULIN ASPART NovoLOG 70/30 100 UNITS/ML SYR SC SCH (08:43)
[2017-01-04] MEDS: INSULIN LISPRO 100 UNIT/ML SC SCH ×3 (08:43→17:17)
[2017-01-04] MEDS: CALCIUM ACETATE 667 MG CAP PO SCH ×3 (09:18→17:16)
[2017-01-04] MEDS: METOPROLOL TARTRATE 100 MG TAB PO SCH ×2 (09:19→20:57)
--- NOTE | 2017-01-04 11:43 | PDINTPN ---
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 DM: Hypoglycemiec overnight after getting his "usual" insulin dose, which he now states he hasn't been taking recently. BSs improved with D10, amps of D50, and increasing PO. Edema: Due to fluid overload. Improved. Anemia: H/H improved with transfusion/fluid removal. No signs of acute blood loss. Plan: HD today. Continue close monitoring of BSs. May be able to transfer to floor later today after dialysis if BSs OK. Follow H/H 01/04/17 11:39 01/04/17 11:43 Subjective: Feels better, slept last night. Appetite fair. Denies dyspnea, pain Objective: Vital Signs Temp Pulse Resp BP Pulse Ox 36.5 C 79 15 161/89 H 100 01/04/17 07:41 01/04/17 10:00 01/04/17 10:00 01/04/17 10:00 01/04/17 10:00 Laboratory Results 01/04/17 05:50 01/04/17 05:50 01/03/17 01/04/17 01/05/17 05:59 05:59 05:59 Intake Total 600 1764 Output Total 550 900 Balance 50 864 PT 16.0 SEC (12.0-15.0) H 01/02/17 17:48 INR 1.28 (0.83-1.16) H 01/02/17 17:48 Physical Exam - Physical Exam General Appearance: alert, no apparent distress EENT: normal ENT inspection Neck: normal inspection Respiratory: chest non-tender, lungs clear Cardiac/Chest: regular rate, rhythm, edema (1+) Abdomen: normal bowel sounds, non-tender Skin: normal color, warm/dry Extremities: normal inspection Neuro/Psych: alert, normal mood/affect, oriented x 3 ICD10 Worksheet Patient Problems: Problems Problem Status Onset Hyperkalemia Acute Renal failure, acute Acute Uremia Acute Volume overload Acute
--- NOTE | 2017-01-04 14:00 | SOAPPROG ---
SOAP Progress Note Assessment/Plan: Assessment: 1. Renal fx. Acute on chronic vs all chronic. DM vs GN vs other. Serologies pending. Dialyze tomorrow, Saturday, anticipate biopsy Saturday. May be ESRD although kidneys were not atrophic on u/s. 2. Anemia. S/p PRBC tx yesterday. Improved. Give procrit. 3. Secondary hyperparathyroidism. P improving with HD. Phoslo with meals. PTH > 600. Can start calcitriol. 4. Edema. UF with dialysis. Plan: 01/04/17 13:56 01/04/17 14:00 01/04/17 14:01 01/04/17 14:02 Subjective: Feels a little nauseated. Had line placed, 1st HD yesterday. Seen and examined on dialysis today. Objective: Vital Signs Temp Pulse Resp BP Pulse Ox 36.5 C 73 15 157/96 H 97 01/04/17 07:41 01/04/17 12:00 01/04/17 12:00 01/04/17 12:00 01/04/17 12:00 Laboratory Results 01/04/17 05:50 01/04/17 05:50 01/03/17 01/04/17 01/05/17 05:59 05:59 05:59 Intake Total 600 1764 Output Total 550 900 Balance 50 864 PT 16.0 SEC (12.0-15.0) H 01/02/17 17:48 INR 1.28 (0.83-1.16) H 01/02/17 17:48 Comfortable, in bed, on dialysis Qb 250, UF goal 2 L net RRR, no m/g/r CTAB Abdom soft, nt 1+ LE edema ICD10 Worksheet Patient Problems: Problems Problem Status Onset Renal failure, acute Acute Hyperkalemia Acute Volume overload Acute Uremia Acute
[2017-01-04 14:44] LABS: DSDNA IF INDICATED NOT INDICATED (NOT IND)
[2017-01-04 14:51] LABS: HEMOGLOBIN A1C 6.8 % (4.0-6.0)
[2017-01-04] MEDS: EPOETIN ALFA 10,000 UNIT/ML VIAL SC SCH (14:59)
[2017-01-04 15:36] LABS: GLOMERULAR BSMNT MEMBRANE IGG <0.2 U
[2017-01-04] MEDS ORDERED: HEPARIN 50,000 UNIT/10 ML VIAL ONE ×2 (16:37→17:14)
[2017-01-04] MEDS: CALCITRIOL 0.25 MCG CAP PO SCH (16:53)
[2017-01-04] MEDS: D10W 1,000 ML IV SCH (16:57)
[2017-01-04 17:58] LABS: HAPTOGLOBIN SERUM 335 mg/dL (30 - 200)
[2017-01-04] MEDS ORDERED: INSULIN 70/30 HUMAN 100 UNITS/ML SYR SC SCH (18:45)
--- NOTE | 2017-01-04 18:50 | HOSPPROG ---
Hospitalist Progress Note Assessment/Plan: * acute on most likely chronic kidney disease * urine with possibly active sediment * plans for possible biopsy in the next few days * getting dialysis * anemia * normal iron studies * will check guaiacs * s/p 3 units of packed red blood cells * type 1 diabetes * decrease insulin * hypertension * restart beta-natan * hypocalcemia * secondary hyperparathyroidism * vitamin-D deficient * DVT prophylaxis - heparin Subjective: was hypoglycemic overnight. says has been only taking 10-20 units of insulin daily rather than the 55 that was recorded on med rec Objective: Vital Signs Temp Pulse Resp BP Pulse Ox 36.5 C 75 14 175/82 H 95 01/04/17 07:41 01/04/17 18:00 01/04/17 18:00 01/04/17 18:00 01/04/17 18:00 Laboratory Results 01/04/17 05:50 01/04/17 05:50 01/03/17 01/04/17 01/05/17 05:59 05:59 05:59 Intake Total 600 1764 1198 Output Total 550 900 Balance 50 864 1198 PT 16.0 SEC (12.0-15.0) H 01/02/17 17:48 INR 1.28 (0.83-1.16) H 01/02/17 17:48 - Physical Exam Constitutional: no apparent distress, appears nourished, not in pain Eyes: anicteric sclera, EOMI Ears, Nose, Mouth, Throat: moist mucous membranes, hearing normal, ears appear normal, no oral mucosal ulcers Cardiovascular: regular rate and rhythym, no murmur, rub, or gallop, edema (1+) Respiratory: no respiratory distress, no rales or rhonchi, clear to auscultation Gastrointestinal: normoactive bowel sounds, soft, non-tender abdomen, no palpable masses Skin: warm Neurologic: AAOx3 Psychiatric: interacting appropriately, not anxious, not encephalopathic, thought process linear ICD10 Worksheet Patient Problems: Problems Problem Status Onset Hyperkalemia Acute Renal failure, acute Acute Uremia Acute Volume overload Acute
[2017-01-04] MEDS: ATORVASTATIN CALCIUM 40 MG TAB PO SCH (20:58)
[2017-01-05 05:06] LABS: % IMMATURE GRANULYOCYTES 0.7 % (0.0-1.1); ABSOLUTE IMMATURE GRANULOCYTES 0.06 10^3/uL (0.00-0.10); ADD DIFF? NO; ADD MORPH? NO; ADD SCAN? NO; ATYPICAL LYMPHOCYTE FLAG 0 (0-99); FRAGMENT RBC FLAG 0 (0-99); HEMATOCRIT 26.7 % (40.0-51.0); HEMOGLOBIN 9.2 g/dL (13.7-17.5); LEFT SHIFT FLG 0 (0-99); LIPEMIA HEMOLYSIS FLAG 90 (0-99); MEAN CELL HEMOGLOBIN CONCENTR. 34.5 g/dL (32.4-36.7); PLATELET CLUMPS FLAG 0 (0-99); PLATELET COUNT 189 10^3/uL (150-400); RED BLOOD CELL COUNT 3.07 10^6/uL (4.40-6.38); RED CELL DISTRIBUTION WIDTH 13.8 % (11.5-15.2)
[2017-01-05 05:36] LABS: ALBUMIN 2.3 g/dL (3.5-5.0); ANION GAP 10 mEq/L (8-16); CALCIUM 6.1 mg/dL (8.5-10.4); CARBON DIOXIDE 22 mEq/l (22-31); CHLORIDE 99 mEq/L (97-110); GLOMERULAR FILTRATION RATE 5; GLUCOSE 225 mg/dL (70-100); POTASSIUM 4.2 mEq/L (3.5-5.2); SODIUM 131 mEq/L (134-144)
[2017-01-05 05:58] LABS: CREATININE 10.4 mg/dL (0.7-1.3)
[2017-01-05] MEDS: HEPARIN 5,000 UNIT/0.5 ML SYR SC SCH ×3 (06:21→22:11)
[2017-01-05] MEDS: METOPROLOL TARTRATE 100 MG TAB PO SCH ×2 (09:13→19:18)
[2017-01-05] MEDS: INSULIN LISPRO 100 UNIT/ML SC SCH ×3 (09:13→19:18)
[2017-01-05] MEDS: CALCIUM ACETATE 667 MG CAP PO SCH ×3 (09:13→19:18)
[2017-01-05] MEDS: INSULIN 70/30 HUMAN 100 UNITS/ML SYR SC SCH ×3 (09:32→19:18)
--- NOTE | 2017-01-05 13:57 | SOAPPROG ---
SOAP Progress Note Assessment/Plan: Assessment: 1. Renal fx. Acute on chronic vs all chronic. DM vs GN vs other. Serologies pending. Can rest from HD tomorrow, anticipate biopsy and next HD Saturday if BP better controlled. May be ESRD although kidneys were not atrophic on u/s. 2. Anemia. S/p PRBC. Improved. Gave procrit. 3. Secondary hyperparathyroidism. P improving with HD. Phoslo with meals. PTH > 600. Started calcitriol. 4. Edema. UF with dialysis. 5. HTN. Initiate amlodipine. Plan: 01/04/17 13:56 01/04/17 14:00 01/04/17 14:01 01/04/17 14:02 01/05/17 13:55 01/05/17 13:56 Subjective: Pt seen and examined on dialysis. Had nausea necessitating reduction in UF to 1 L goal. Had dialysis yesterday with nausea as well. Feels fine now. Has some itching. Objective: Vital Signs Temp Pulse Resp BP Pulse Ox 36.8 C 72 20 167/93 H 92 01/05/17 12:00 01/05/17 12:00 01/05/17 12:00 01/05/17 12:00 01/05/17 12:00 Microbiology 01/03/17 01:53 Urine Culture - Final Urine,Clean Catch Laboratory Results 01/05/17 04:11 01/05/17 04:11 01/04/17 01/05/17 01/06/17 05:59 05:59 05:59 Intake Total 1764 2498 Output Total 900 Balance 864 2498 PT 16.0 SEC (12.0-15.0) H 01/02/17 17:48 INR 1.28 (0.83-1.16) H 01/02/17 17:48 On dialysis Qb 250 BP 178/98 On dialysis RRR, no m/g/r CTAB Abdom soft, nt 2+ LE edema ICD10 Worksheet Patient Problems: Problems Problem Status Onset Renal failure, acute Acute Hyperkalemia Acute Volume overload Acute Uremia Acute
[2017-01-05 14:07] LABS: PEUR A/G RATIO 0.92 %; PEUR ALBUMIN 48 %; PEUR ALPHA 1-GLOBULIN 9 %; PEUR ALPHA 2-GLOBULIN 11 %; PEUR BETA-GLOBULIN 11 %; PEUR GAMMA-GLOBULIN 21 %; PEUR IMPRESSION See Comments
--- NOTE | 2017-01-05 15:05 | HOSPPROG ---
Hospitalist Progress Note Assessment/Plan: * acute on most likely chronic kidney disease * urine with possibly active sediment * plans for possible biopsy in the next few days * getting dialysis * anemia * normal iron studies * will check guaiacs * s/p 3 units of packed red blood cells * type 1 diabetes * decrease insulin * hypertension * restart beta-natan * hypocalcemia * secondary hyperparathyroidism * vitamin-D deficient * DVT prophylaxis - heparin Subjective: no new complaints. feels better Objective: Vital Signs Temp Pulse Resp BP Pulse Ox 36.8 C 72 20 167/93 H 92 01/05/17 12:00 01/05/17 12:00 01/05/17 12:00 01/05/17 12:00 01/05/17 12:00 Microbiology 01/03/17 01:53 Urine Culture - Final Urine,Clean Catch Laboratory Results 01/05/17 04:11 01/05/17 04:11 01/04/17 01/05/17 01/06/17 05:59 05:59 05:59 Intake Total 1764 2498 Output Total 900 Balance 864 2498 PT 16.0 SEC (12.0-15.0) H 01/02/17 17:48 INR 1.28 (0.83-1.16) H 01/02/17 17:48 - Physical Exam Constitutional: no apparent distress, appears nourished, not in pain Eyes: anicteric sclera, EOMI Ears, Nose, Mouth, Throat: moist mucous membranes, hearing normal, ears appear normal Cardiovascular: regular rate and rhythym, no murmur, rub, or gallop, edema (2+) Respiratory: no respiratory distress, no rales or rhonchi, clear to auscultation Gastrointestinal: normoactive bowel sounds, soft, non-tender abdomen, no palpable masses Skin: warm Neurologic: AAOx3 Psychiatric: interacting appropriately, not anxious, not encephalopathic, thought process linear ICD10 Worksheet Patient Problems: Problems Problem Status Onset Hyperkalemia Acute Renal failure, acute Acute Uremia Acute Volume overload Acute
[2017-01-05] MEDS: CANN-EASE 2 GM TUBE TP PRN (15:58)
[2017-01-05] MEDS: amLODIPine BESYLATE 5 MG TAB PO SCH (15:58)
[2017-01-05] MEDS: ATORVASTATIN CALCIUM 40 MG TAB PO SCH (19:18)
[2017-01-06 05:39] LABS: % IMMATURE GRANULYOCYTES 0.8 % (0.0-1.1); ABSOLUTE IMMATURE GRANULOCYTES 0.07 10^3/uL (0.00-0.10); ADD DIFF? NO; ADD MORPH? NO; ADD SCAN? NO; ATYPICAL LYMPHOCYTE FLAG 0 (0-99); FRAGMENT RBC FLAG 0 (0-99); HEMATOCRIT 26.2 % (40.0-51.0); LEFT SHIFT FLG 0 (0-99); LIPEMIA HEMOLYSIS FLAG 90 (0-99); MEAN CELL HEMOGLOBIN 30.5 pg (27.9-34.1); MEAN CELL HEMOGLOBIN CONCENTR. 34.4 g/dL (32.4-36.7); MEAN CELL VOLUME 88.8 fL (81.5-99.8); MEAN PLATELET VOLUME 9.7 fL (8.7-11.7); PLATELET CLUMPS FLAG 20 (0-99); PLATELET COUNT 167 10^3/uL (150-400); RED BLOOD CELL COUNT 2.95 10^6/uL (4.40-6.38); RED CELL DISTRIBUTION WIDTH 13.2 % (11.5-15.2)
[2017-01-06 05:55] LABS: ALBUMIN 2.3 g/dL (3.5-5.0); ANION GAP 6 mEq/L (8-16); CALCIUM 6.8 mg/dL (8.5-10.4); CARBON DIOXIDE 26 mEq/l (22-31); CHLORIDE 101 mEq/L (97-110); GLOMERULAR FILTRATION RATE 7; GLUCOSE 75 mg/dL (70-100); POTASSIUM 4.3 mEq/L (3.5-5.2); SODIUM 133 mEq/L (134-144)
[2017-01-06] MEDS: HEPARIN 5,000 UNIT/0.5 ML SYR SC SCH ×3 (06:00→21:24)
[2017-01-06 06:03] LABS: CREATININE 8.6 mg/dL (0.7-1.3)
[2017-01-06] MEDS: INSULIN LISPRO 100 UNIT/ML SC SCH ×3 (09:42→17:54)
[2017-01-06] MEDS: CALCIUM ACETATE 667 MG CAP PO SCH ×3 (09:43→17:54)
[2017-01-06] MEDS: METOPROLOL TARTRATE 100 MG TAB PO SCH ×2 (09:43→21:24)
[2017-01-06] MEDS: amLODIPine BESYLATE 5 MG TAB PO SCH ×2 (09:43→21:24)
[2017-01-06] MEDS: INSULIN 70/30 HUMAN 100 UNITS/ML SYR SC SCH ×2 (09:43→17:53)
--- NOTE | 2017-01-06 14:55 | HOSPPROG ---
Hospitalist Progress Note Assessment/Plan: * acute on most likely chronic kidney disease * urine with possibly active sediment * plans for possible biopsy tomorrow I believe * getting dialysis * anemia * normal iron studies * will check guaiacs * s/p 3 units of packed red blood cells * type 1 diabetes * blood sugars better with decrease in insulin * hypertension * continue beta-natan * amlodipine added yesterday * hypocalcemia * secondary hyperparathyroidism * vitamin-D deficient * DVT prophylaxis - heparin Subjective: no new complaints. Some slight itching Objective: Vital Signs Temp Pulse Resp BP Pulse Ox 36.8 C 78 19 161/94 H 91 L 01/06/17 08:00 01/06/17 08:00 01/06/17 08:00 01/06/17 12:07 01/06/17 08:00 Microbiology 01/03/17 01:53 Urine Culture - Final Urine,Clean Catch Laboratory Results 01/06/17 04:25 01/06/17 04:25 01/05/17 01/06/17 01/07/17 05:59 05:59 05:59 Intake Total 2498 725 Balance 2498 725 PT 16.0 SEC (12.0-15.0) H 01/02/17 17:48 INR 1.28 (0.83-1.16) H 01/02/17 17:48 - Physical Exam Constitutional: no apparent distress, appears nourished, not in pain Eyes: anicteric sclera, EOMI Ears, Nose, Mouth, Throat: moist mucous membranes, hearing normal, ears appear normal Cardiovascular: regular rate and rhythym, no murmur, rub, or gallop, edema (1+) Respiratory: no respiratory distress, no rales or rhonchi, clear to auscultation Gastrointestinal: normoactive bowel sounds, soft, non-tender abdomen, no palpable masses Neurologic: AAOx3 Psychiatric: interacting appropriately, not anxious, not encephalopathic, thought process linear ICD10 Worksheet Patient Problems: Problems Problem Status Onset Hyperkalemia Acute Renal failure, acute Acute Uremia Acute Volume overload Acute
--- NOTE | 2017-01-06 16:10 | SOAPPROG ---
SOAP Progress Note Assessment/Plan: Assessment: 1. Renal fx. Acute on chronic vs all chronic. DM vs GN vs other. Serologies including anti GBM, Hep B/C/HIV, SIFE, MPO/PR3, JHOAN negative. Plan HD tomorrow, anticipate biopsy Saturday as long as BP better controlled. Very likely he is ESRD although kidneys were not atrophic on u/s. Will need to verify benefits for outpatient dialysis tomorrow. 2. Anemia. S/p PRBC. Improved. Gave procrit. 3. Secondary hyperparathyroidism. P improving with HD. Phoslo with meals. Ca improving. PTH > 600. Started calcitriol. 4. Edema. UF with dialysis. 5. HTN. Increase amlodipine, UF on dialysis. Would like SBP <160 for biopsy. Plan: 01/04/17 13:56 01/04/17 14:00 01/04/17 14:01 01/04/17 14:02 01/05/17 13:55 01/05/17 13:56 01/06/17 16:08 01/06/17 16:10 Subjective: Vomited with dialysis again yesterday. No complaints today. Appetite very good. Objective: Vital Signs Temp Pulse Resp BP Pulse Ox 36.8 C 78 19 161/94 H 91 L 01/06/17 08:00 01/06/17 08:00 01/06/17 08:00 01/06/17 12:07 01/06/17 08:00 Microbiology 01/03/17 01:53 Urine Culture - Final Urine,Clean Catch Laboratory Results 01/06/17 04:25 01/06/17 04:25 01/05/17 01/06/17 01/07/17 05:59 05:59 05:59 Intake Total 2498 725 Balance 2498 725 PT 16.0 SEC (12.0-15.0) H 01/02/17 17:48 INR 1.28 (0.83-1.16) H 01/02/17 17:48 Comfortable, in bed RRR, no m/g/r CTAB Abdom soft, nt 2+ LE edema ICD10 Worksheet Patient Problems: Problems Problem Status Onset Renal failure, acute Acute Hyperkalemia Acute Volume overload Acute Uremia Acute
[2017-01-06] MEDS: ATORVASTATIN CALCIUM 40 MG TAB PO SCH (21:24)
[2017-01-06] MEDS: hydrALAZINE 10 MG TAB PO SCH (22:39)
[2017-01-07 05:31] LABS: % IMMATURE GRANULYOCYTES 0.9 % (0.0-1.1); ABSOLUTE IMMATURE GRANULOCYTES 0.09 10^3/uL (0.00-0.10); ADD DIFF? NO; ADD MORPH? NO; ADD SCAN? NO; ATYPICAL LYMPHOCYTE FLAG 0 (0-99); FRAGMENT RBC FLAG 0 (0-99); HEMATOCRIT 26.6 % (40.0-51.0); LEFT SHIFT FLG 10 (0-99); LIPEMIA HEMOLYSIS FLAG 90 (0-99); MEAN CELL HEMOGLOBIN 29.8 pg (27.9-34.1); MEAN CELL HEMOGLOBIN CONCENTR. 33.8 g/dL (32.4-36.7); MEAN CELL VOLUME 88.1 fL (81.5-99.8); MEAN PLATELET VOLUME 9.7 fL (8.7-11.7); PLATELET CLUMPS FLAG 0 (0-99); PLATELET COUNT 166 10^3/uL (150-400); RED BLOOD CELL COUNT 3.02 10^6/uL (4.40-6.38); RED CELL DISTRIBUTION WIDTH 13.2 % (11.5-15.2)
[2017-01-07 05:41] LABS: ALBUMIN 2.3 g/dL (3.5-5.0); ANION GAP 10 mEq/L (8-16); CALCIUM 6.7 mg/dL (8.5-10.4); CARBON DIOXIDE 23 mEq/l (22-31); CHLORIDE 102 mEq/L (97-110); GLOMERULAR FILTRATION RATE 6; GLUCOSE 114 mg/dL (70-100); SODIUM 135 mEq/L (134-144)
[2017-01-07 05:54] LABS: CREATININE 9.8 mg/dL (0.7-1.3)
[2017-01-07] MEDS: HEPARIN 5,000 UNIT/0.5 ML SYR SC SCH ×2 (06:24→15:32)
[2017-01-07] MEDS: CALCIUM ACETATE 667 MG CAP PO SCH ×3 (08:12→18:11)
[2017-01-07] MEDS: amLODIPine BESYLATE 5 MG TAB PO SCH (08:13)
[2017-01-07] MEDS: CALCITRIOL 0.25 MCG CAP PO SCH (08:13)
[2017-01-07] MEDS: hydrALAZINE 10 MG TAB PO SCH (08:13)
[2017-01-07] MEDS: METOPROLOL TARTRATE 100 MG TAB PO SCH ×2 (08:13→19:58)
[2017-01-07] MEDS: INSULIN 70/30 HUMAN 100 UNITS/ML SYR SC SCH ×2 (08:15→17:39)
[2017-01-07] MEDS: INSULIN LISPRO 100 UNIT/ML SC SCH ×3 (08:15→18:11)
--- NOTE | 2017-01-07 11:03 | SOAPPROG ---
SOAP Progress Note Assessment/Plan: Assessment/Plan: JOAN: likely has CKD given his longstanding diabetes as well as elevated PTH, although previous Cr and renal history unknown. Could be ESRD although kidneys do not appear atrophic on renal US. Serological workup negative thus far. - HD again today, will continue MWF for now. - Will order renal biopsy for tomorrow. - Renal US reviewed, no hydronephrosis. - Avoid MOM, morphine, demerol, NSAIDs, contrast, aminoglycosides, fleets, ACEI /ARB, and other nephrotoxins. - Please avoid giving any NSAIDs or blood thinners while renal biopsy being pursued. Anemia: improved after being transfused last week, Hgb now stable at 9, giving epo weekly. HTN: uncontrolled. - Will continue metoprolol. - Will increase po hydralazine to 25mg po TID. - Continue prn hydralazine. - Will change amlodipine to BID nifedipine. - Will continue to monitor. JAMES: Pt with elevated PTH >600, phos of 12, and corrected calcium of around 6.1. Calcium now improving with corrected up to 8, phos down to 6 range. - Will continue HD. - Will continue calcitriol. - Will continue calcium acetate with meals. - Will continue to monitor. Subjective: No acute events overnight. Pt feeling much better overall, swelling improved, a little weak but hoping to walk more today. Objective: Vital Signs Temp Pulse Resp BP Pulse Ox 37.1 C 80 18 186/96 H 95 01/07/17 08:00 01/07/17 08:00 01/07/17 08:00 01/07/17 08:13 01/07/17 08:00 Laboratory Results 01/07/17 04:13 01/07/17 04:13 01/06/17 01/07/17 01/08/17 05:59 05:59 05:59 Intake Total 725 300 Balance 725 300 PT 16.0 SEC (12.0-15.0) H 01/02/17 17:48 INR 1.28 (0.83-1.16) H 01/02/17 17:48 General: alert and oriented, no acute distress, sitting up on side of bed Eyes; EOMI, PERRL, sclerae nonicteric OP: Clear CV: RRR Resp: nonlabored respirations Abd; Soft, NT Ext: +1 edema BLE Neuro: CN II-XII grossly intact, no asterixis Psych; Cooperative, appropriate mood and affect Access: RIJ temp cath ICD10 Worksheet Patient Problems: Problems Problem Status Onset Hyperkalemia Acute Renal failure, acute Acute Uremia Acute Volume overload Acute
[2017-01-07 11:36] LABS: APTT 31.1 SEC (23.0-38.0); INR 1.09 (0.83-1.16)
[2017-01-07] MEDS: hydrALAZINE 25 MG TAB PO SCH ×2 (15:31→21:07)
[2017-01-07] MEDS ORDERED: HEPARIN 50,000 UNIT/10 ML VIAL ONE (16:32)
--- NOTE | 2017-01-07 16:54 | HOSPPROG ---
Hospitalist Progress Note Assessment/Plan: * acute on most likely chronic kidney disease * urine with possibly active sediment * plans for possible biopsy tomorrow * getting dialysis * anemia * normal iron studies * will check guaiacs * s/p 3 units of packed red blood cells * type 1 diabetes * blood sugars better with decrease in insulin * hypertension * continue beta-natan * more medications added by Nephrology * hypocalcemia * secondary hyperparathyroidism * vitamin-D deficient * DVT prophylaxis - hold heparin for biopsy Subjective: no new complaints. No nausea with dialysis Objective: Vital Signs Temp Pulse Resp BP Pulse Ox 36.8 C 68 18 169/91 H 94 01/07/17 15:34 01/07/17 15:34 01/07/17 15:34 01/07/17 15:34 01/07/17 15:34 Laboratory Results 01/07/17 04:13 01/07/17 04:13 01/06/17 01/07/17 01/08/17 05:59 05:59 05:59 Intake Total 725 300 Balance 725 300 PT 14.0 SEC (12.0-15.0) 01/07/17 11:16 INR 1.09 (0.83-1.16) 01/07/17 11:16 discussed with Nephrology - Physical Exam Constitutional: no apparent distress, appears nourished, not in pain Eyes: anicteric sclera, EOMI Ears, Nose, Mouth, Throat: moist mucous membranes, hearing normal Cardiovascular: regular rate and rhythym, no murmur, rub, or gallop Respiratory: no respiratory distress, no rales or rhonchi, clear to auscultation Gastrointestinal: normoactive bowel sounds, soft, non-tender abdomen, no palpable masses Skin: warm Neurologic: AAOx3 Psychiatric: interacting appropriately, not anxious, not encephalopathic, thought process linear ICD10 Worksheet Patient Problems: Problems Problem Status Onset Hyperkalemia Acute Renal failure, acute Acute Uremia Acute Volume overload Acute
[2017-01-07] MEDS: ATORVASTATIN CALCIUM 40 MG TAB PO SCH (19:58)
[2017-01-07] MEDS: NIFEdipine ER 30 MG TAB PO SCH (19:58)
[2017-01-08 05:00] LABS: ALBUMIN 2.4 g/dL (3.5-5.0); ANION GAP 7 mEq/L (8-16); CALCIUM 7.2 mg/dL (8.5-10.4); CARBON DIOXIDE 26 mEq/l (22-31); CHLORIDE 101 mEq/L (97-110); GLOMERULAR FILTRATION RATE 7; GLUCOSE 161 mg/dL (70-100); SODIUM 134 mEq/L (134-144)
[2017-01-08 05:06] LABS: CREATININE 7.8 mg/dL (0.7-1.3)
[2017-01-08] MEDS: hydrALAZINE 25 MG TAB PO SCH ×3 (08:13→21:18)
[2017-01-08] MEDS: NIFEdipine ER 30 MG TAB PO SCH ×2 (08:13→21:19)
[2017-01-08] MEDS: METOPROLOL TARTRATE 100 MG TAB PO SCH ×2 (08:13→21:18)
[2017-01-08] MEDS: INSULIN LISPRO 100 UNIT/ML SC SCH ×5 (08:14→18:42)
[2017-01-08] MEDS: CALCIUM ACETATE 667 MG CAP PO SCH ×4 (08:14→18:22)
[2017-01-08] MEDS: INSULIN 70/30 HUMAN 100 UNITS/ML SYR SC SCH ×2 (08:40→18:22)
[2017-01-08] MEDS: CANN-EASE 2 GM TUBE TP PRN (10:06)
[2017-01-08] MEDS ORDERED: MIDAZOLAM 2 MG/2 ML VIAL ONE (11:33)
[2017-01-08] MEDS ORDERED: fentaNYL 100 MCG/2 ML INJ ONE (11:33)
[2017-01-08 14:07] LABS: HEMATOCRIT 25.5 % (40.0-51.0); HEMOGLOBIN 8.6 g/dL (13.7-17.5)
--- NOTE | 2017-01-08 14:49 | SOAPPROG ---
[facility] Progress Note Assessment/Plan: Assessment: 1. arf/crf: longstanding dm, serologies negative. s/p renal bx today, anticipate results by end of day tomorrow. Most likely esrd due to dm +/- other glomerular process such as IgA. Will need outpt hd arranged and temp hd cath converted to tunneled cath prior to d/c. Will hd tomorrow, assuming bx shows esrd as expected would convert cath to tunneled. Have asked outpt dialysis personnel to confirm insurance coverage for esrd. 2. htn: meds adjusted, will uf more aggressively on hd tomorrow. 3. edema: uf on hd as above. Plan: 01/08/17 14:37 Subjective: s/p renal bx earlier today. Denies flank pain or gross hematuria. Objective: Vital Signs Temp Pulse Resp BP Pulse Ox 36.4 C 72 16 143/83 H 987 H 01/08/17 13:36 01/08/17 13:36 01/08/17 13:36 01/08/17 13:36 01/08/17 13:36 Microbiology 01/02/17 23:20 Blood Culture - Final Blood 01/02/17 22:48 Blood Culture - Final Blood Laboratory Results 01/08/17 14:00 01/08/17 03:39 01/07/17 01/08/17 01/09/17 05:59 05:59 05:59 Intake Total 300 650 Output Total 1 Balance 300 649 PT 14.0 SEC (12.0-15.0) 01/07/17 11:16 INR 1.09 (0.83-1.16) 01/07/17 11:16 Physical Exam - Physical Exam General Appearance: no apparent distress Respiratory: lungs clear Cardiac/Chest: regular rate, rhythm, other (no rub) Extremities: pedal edema ICD10 Worksheet Patient Problems: Problems Problem Status Onset Renal failure, acute Acute Hyperkalemia Acute Volume overload Acute Uremia Acute
[2017-01-08 16:33] LABS: HEMATOCRIT 24.4 % (40.0-51.0); HEMOGLOBIN 8.2 g/dL (13.7-17.5)
--- NOTE | 2017-01-08 18:23 | HOSPPROG ---
Hospitalist Progress Note Assessment/Plan: Assessment: 51-year-old male presents with acute kidney injury on chronic kidney disease Plan: # JOAN on CKD. Suspect evolving ESRD in setting of DM1 and HTN - monitoring Hgb level post-biopsy - s/p biopsy, results tomorrow - if e/o ESRD, will place tunneled cath and discharge s/p HD - d/w Dr. Linder, he is confirming w/ outpt dialysis ctr patient's insurance status # Metabolic acidosis. Acute, bicarb 15, 2/2 renal disease, improving w/ HD # Uremia. Acute, BUN 150s, 2/2 renal disease, improving w/ HD # Hypocalcemia. 2/2 renal disease and exacerbated by secondary hyperparathyroidism - s/p HD and calcium # Anemia. 2/2 ESRD, normal iron studies - s/p 3u PRBC, Epo # DM1. Reduced insulin # HTN. Chronic, cont metop 100mg bid, nifedipine 30mg bid, hydral 25mg tid # Vitamin D deficiency. Replete Diet. Renal PPx. Holding hep for bx, SCDs Code. Full Dispo. ADD 01/09, pending no biopsy complications and tunneled cath placement tomorrow Subjective: Eating well after biopsy Objective: Vital Signs Temp Pulse Resp BP Pulse Ox 36.4 C 71 18 133/79 H 97 01/08/17 16:00 01/08/17 16:00 01/08/17 16:00 01/08/17 16:00 01/08/17 16:00 Microbiology 01/02/17 23:20 Blood Culture - Final Blood 01/02/17 22:48 Blood Culture - Final Blood Laboratory Results 01/08/17 16:20 01/08/17 03:39 01/07/17 01/08/17 01/09/17 05:59 05:59 05:59 Intake Total 300 650 Output Total 1 Balance 300 649 PT 14.0 SEC (12.0-15.0) 01/07/17 11:16 INR 1.09 (0.83-1.16) 01/07/17 11:16 - Pending Discharge Pending Discharge Within 24 Hours: Yes Pending Discharge Date: 01/09/17 Pending Discharge Time: 11:00 - Physical Exam Constitutional: no apparent distress, appears nourished, not in pain Cardiovascular: regular rate and rhythym, no murmur, rub, or gallop Respiratory: no respiratory distress, no rales or rhonchi, clear to auscultation Gastrointestinal: normoactive bowel sounds, soft, non-tender abdomen, no palpable masses Skin: no rashes or abrasions, no fluctuance, no induration Neurologic: AAOx3, sensation intact bilaterally, No facial droop Psychiatric: interacting appropriately, not anxious, not encephalopathic, thought process linear ICD10 Worksheet Patient Problems: Problems Problem Status Onset Hyperkalemia Acute Renal failure, acute Acute Uremia Acute Volume overload Acute
[2017-01-08 19:23] LABS: HEMATOCRIT 24.6 % (40.0-51.0); HEMOGLOBIN 8.3 g/dL (13.7-17.5)
[2017-01-08] MEDS: ATORVASTATIN CALCIUM 40 MG TAB PO SCH (21:18)
[2017-01-09 05:13] LABS: HEMATOCRIT 25.1 % (40.0-51.0); HEMOGLOBIN 8.4 g/dL (13.7-17.5); MEAN CELL HEMOGLOBIN 29.9 pg (27.9-34.1); MEAN CELL HEMOGLOBIN CONCENTR. 33.5 g/dL (32.4-36.7); MEAN CELL VOLUME 89.3 fL (81.5-99.8); RED BLOOD CELL COUNT 2.81 10^6/uL (4.40-6.38); RED CELL DISTRIBUTION WIDTH 13.2 % (11.5-15.2)
[2017-01-09 05:25] LABS: ALBUMIN 2.4 g/dL (3.5-5.0); ANION GAP 8 mEq/L (8-16); CALCIUM 7.1 mg/dL (8.5-10.4); CARBON DIOXIDE 25 mEq/l (22-31); CHLORIDE 102 mEq/L (97-110); GLOMERULAR FILTRATION RATE 6; GLUCOSE 118 mg/dL (70-100); POTASSIUM 5.6 mEq/L (3.5-5.2); SODIUM 135 mEq/L (134-144)
[2017-01-09 05:42] LABS: CREATININE 9.5 mg/dL (0.7-1.3)
[2017-01-09] MEDS ORDERED: ERGOCALCIFEROL 50,000 I.UNIT CAP PO ONE ×3 (09:00→14:00)
[2017-01-09] MEDS: INSULIN 70/30 HUMAN 100 UNITS/ML SYR SC SCH ×2 (09:03→18:38)
[2017-01-09] MEDS: CALCIUM ACETATE 667 MG CAP PO SCH ×4 (09:03→18:37)
[2017-01-09] MEDS: INSULIN LISPRO 100 UNIT/ML SC SCH ×3 (09:04→18:38)
[2017-01-09] MEDS: CALCITRIOL 0.25 MCG CAP PO SCH (09:04)
--- NOTE | 2017-01-09 11:01 | SOAPPROG ---
SOAP Progress Note Assessment/Plan: Assessment:Plan: Renal-likely ESRD due to DM -biopsy result pending -plan for ongoing dialysis -treatment today and tomorrow -discussed outpatient options for chronic dialysis -patient wishes to get treatment with me at the [facility], , fax [phone] -I have contacted the unit and they are starting the admission process which requires confirmation of coverage, prior auth if needed, etc -he needs a morning treatment time to accommodate his work schedule, he works from 1:30 to 9:30 pm at [employer] Volume overload-ultrafiltration with dialysis Anemia-on EPO -Iron sat 23% -IV iron ordered Access-has temp cath in place -I made him NPO for now -restrict LUE to allow for AVF placement -I have called Dr. Rivera' office, they will see today Dispo-patient interested in renal transplant -treatment options discussed in detail with patient, including incenter Hd, peritoneal dialysis and renal transplant 01/09/17 11:03 Subjective: stable overnite Objective: Vital Signs Temp Pulse Resp BP Pulse Ox 36.9 C 82 18 151/86 H 94 01/09/17 07:55 01/09/17 07:55 01/09/17 07:55 01/09/17 07:55 01/09/17 07:55 Microbiology 01/02/17 23:20 Blood Culture - Final Blood 01/02/17 22:48 Blood Culture - Final Blood Laboratory Results 01/09/17 04:11 01/09/17 04:11 01/08/17 01/09/17 01/10/17 05:59 05:59 05:59 Intake Total 650 890 Output Total 1 Balance 649 890 PT 14.0 SEC (12.0-15.0) 01/07/17 11:16 INR 1.09 (0.83-1.16) 01/07/17 11:16 Physical Exam - Physical Exam General Appearance: alert, no apparent distress EENT: other (facial edema) Neck: normal inspection Respiratory: decreased breath sounds (at bases on R, 1/3 on left), rales Cardiac/Chest: regular rate, rhythm Abdomen: normal bowel sounds, non-tender Extremities: swelling (into thighs) ICD10 Worksheet Patient Problems: Problems Problem Status Onset Hyperkalemia Acute Renal failure, acute Acute Uremia Acute Volume overload Acute
[2017-01-09] MEDS: hydrALAZINE 25 MG TAB PO SCH ×3 (12:10→21:42)
[2017-01-09] MEDS: SODIUM FERRIC GLUCONAT/SUCROSE 125 MG in NS 100 ML IV SCH (12:10)
[2017-01-09] MEDS: METOPROLOL TARTRATE 100 MG TAB PO SCH ×2 (12:10→21:42)
[2017-01-09] MEDS: NIFEdipine ER 30 MG TAB PO SCH ×2 (12:16→21:42)
[2017-01-09] MEDS: ONDANSETRON DISINTEGRATING 4 MG TAB PO PRN (13:26)
--- NOTE | 2017-01-09 17:58 | HOSPPROG ---
Hospitalist Progress Note Assessment/Plan: Assessment: 51-year-old male presents with acute kidney injury on chronic kidney disease Plan: # JOAN on CKD. Suspect evolving ESRD in setting of DM1 and HTN - Hgb stable post-bx - s/p biopsy - plan for tunnel cath tomorrow, outpt HD needing confirmation - d/w Dr. Aguilera, patient will likely be ready tomorrow # Metabolic acidosis. Acute, bicarb 15, 2/2 renal disease, improving w/ HD # Uremia. Acute, BUN 150s, 2/2 renal disease, improving w/ HD # Hypocalcemia. 2/2 renal disease and exacerbated by secondary hyperparathyroidism - s/p HD and calcium # Anemia. 2/2 ESRD, normal iron studies - s/p 3u PRBC, Epo # DM1. Reduced insulin # HTN. Chronic, cont metop 100mg bid, nifedipine 30mg bid, hydral 25mg tid # Vitamin D deficiency. Replete w/ high dose weekly x 8 weeks Diet. Renal PPx. Holding hep for bx, SCDs Code. Full Dispo. ADD 01/10, pending tunnel cath placement and confirmation of outpt HD center Subjective: Patient reports he is eating well today, continues to have lower extremity edema with weighty legs Objective: Vital Signs Temp Pulse Resp BP Pulse Ox 37.1 C 79 20 146/87 H 95 01/09/17 11:25 01/09/17 11:25 01/09/17 11:25 01/09/17 11:25 01/09/17 11:25 Laboratory Results 01/09/17 04:11 01/09/17 04:11 01/08/17 01/09/17 01/10/17 05:59 05:59 05:59 Intake Total 650 890 Output Total 1 Balance 649 890 PT 14.0 SEC (12.0-15.0) 01/07/17 11:16 INR 1.09 (0.83-1.16) 01/07/17 11:16 - Pending Discharge Pending Discharge Within 24 Hours: Yes Pending Discharge Date: 01/10/17 Pending Discharge Time: 11:00 - Physical Exam Constitutional: no apparent distress, not in pain, chronically ill appearing, No uncomfortable Cardiovascular: systolic murmur (106 systolic murmur at all valve locations), edema (1+ bilateral lower extremity edema), No irregularly irregular, No tachycardia Respiratory: inspiratory crackles (Bilateral bases), No reduced air movement, No expiratory wheeze, No bronchial breath sounds, No respiratory distress Gastrointestinal: normoactive bowel sounds, soft, non-tender abdomen, no palpable masses Neurologic: AAOx3, sensation intact bilaterally, No weakness (Motor 5/5 bilateral lower extremity) Psychiatric: interacting appropriately, not anxious, not encephalopathic, thought process linear ICD10 Worksheet Patient Problems: Problems Problem Status Onset Renal failure, acute Acute Hyperkalemia Acute Volume overload Acute Uremia Acute
[2017-01-09] MEDS ORDERED: HEPARIN 50,000 UNIT/10 ML VIAL ONE (18:56)
[2017-01-09] MEDS: ATORVASTATIN CALCIUM 40 MG TAB PO SCH (21:42)
[2017-01-10 06:35] LABS: HEMATOCRIT 23.6 % (40.0-51.0); HEMOGLOBIN 7.8 g/dL (13.7-17.5); MEAN CELL HEMOGLOBIN 30.7 pg (27.9-34.1); MEAN CELL HEMOGLOBIN CONCENTR. 33.1 g/dL (32.4-36.7); MEAN CELL VOLUME 92.9 fL (81.5-99.8); RED BLOOD CELL COUNT 2.54 10^6/uL (4.40-6.38); RED CELL DISTRIBUTION WIDTH 13.2 % (11.5-15.2)
[2017-01-10 06:55] LABS: ALBUMIN 2.4 g/dL (3.5-5.0); ANION GAP 6 mEq/L (8-16); CALCIUM 7.1 mg/dL (8.5-10.4); CARBON DIOXIDE 27 mEq/l (22-31); CHLORIDE 101 mEq/L (97-110); GLOMERULAR FILTRATION RATE 8; GLUCOSE 156 mg/dL (70-100); SODIUM 134 mEq/L (134-144)
[2017-01-10 07:01] LABS: CREATININE 7.7 mg/dL (0.7-1.3)
[2017-01-10] MEDS ORDERED: SKIN ADHESIVE (DERMABOND) 1 EACH TP ONE (08:35)
[2017-01-10] MEDS ORDERED: LIDOCAINE 1% 30 ML SDV ONE (08:35)
[2017-01-10] MEDS ORDERED: THROMBIN (RECOMBINANT) 20,000 UNIT SPRAY TP ONE (08:35)
[2017-01-10] MEDS ORDERED: BUPIVACAINE 0.5% 30 ML SDV ONE (08:36)
[2017-01-10] MEDS ORDERED: PROTAMINE SULFATE 50 MG/5 ML VIAL IVP ONE (08:36)
[2017-01-10] MEDS ORDERED: THROMBIN (RECOMBINANT) 5,000 UNIT VIAL TP ONE ×2 (08:36→09:44)
[2017-01-10] MEDS ORDERED: NA BICARBONATE 50 MEQ/50 ML VIAL ONE (08:37)
[2017-01-10] MEDS ORDERED: PAPAVERINE HCL 60 MG/2 ML SDV ONE (08:37)
[2017-01-10] MEDS: CALCIUM ACETATE 667 MG CAP PO SCH ×3 (08:38→19:13)
[2017-01-10] MEDS: INSULIN 70/30 HUMAN 100 UNITS/ML SYR SC SCH ×2 (08:40→18:29)
[2017-01-10] MEDS: INSULIN LISPRO 100 UNIT/ML SC SCH ×3 (08:41→18:28)
[2017-01-10] MEDS ORDERED: SODIUM BICARBONATE 10 MEQ/10 ML SYR IVP ONE (08:45)
[2017-01-10] MEDS: SODIUM FERRIC GLUCONAT/SUCROSE 125 MG in NS 100 ML IV SCH (08:46)
[2017-01-10] MEDS: METOPROLOL TARTRATE 100 MG TAB PO SCH ×2 (08:48→21:32)
[2017-01-10] MEDS: hydrALAZINE 25 MG TAB PO SCH ×3 (08:48→21:31)
[2017-01-10] MEDS: NIFEdipine ER 30 MG TAB PO SCH ×2 (08:48→21:32)
[2017-01-10] MEDS ORDERED: LIDOCAINE 1% 2 ML INJ ONE (09:29)
--- NOTE | 2017-01-10 09:52 | SOAPPROG ---
SOAP Progress Note Assessment/Plan: Assessment:Plan: Renal-likely ESRD due to DM -biopsy result demonstrates severe diabetic nephropathy, no immune deposits to suggest other etiology -plan for ongoing dialysis -treatment today and tomorrow -discussed outpatient options for chronic dialysis yesterday -patient wishes to get treatment with me at the [facility], , fax [phone] -I have contacted the unit and they are starting the admission process which requires confirmation of coverage, prior auth if needed, etc -he needs a morning treatment time to accommodate his work schedule, he works from 1:30 to 9:30 pm at [employer] -he is approved to start treatment there on Saturday at 7:30 -he plans to go over prior to his first treatment for paperwork and orientation -he will likely be discharged tomorrow after dialysis -we will try to make him a first case Volume overload-ultrafiltration with dialysis Anemia-on EPO -Iron sat 23% -IV iron ordered Access-has temp cath in place -in pre-op for catheter revision and possible AVF -restrict LUE to allow for AVF placement Dispo-patient interested in renal transplant -treatment options discussed in detail with patient, including incenter Hd, peritoneal dialysis and renal transplant -plan for discharge tomorrow after dialysis if he is stable 01/10/17 09:49 Subjective: awaiting operation, stable Objective: Vital Signs Temp Pulse Resp BP Pulse Ox 37.1 C 80 16 130/69 H 95 01/10/17 08:00 01/10/17 08:00 01/10/17 08:00 01/10/17 08:00 01/10/17 08:00 Laboratory Results 01/10/17 06:20 01/10/17 06:20 01/09/17 01/10/17 01/11/17 05:59 05:59 05:59 Intake Total 890 300 Balance 890 300 PT 14.0 SEC (12.0-15.0) 01/07/17 11:16 INR 1.09 (0.83-1.16) 01/07/17 11:16 Physical Exam - Physical Exam General Appearance: alert, no apparent distress EENT: normal ENT inspection Neck: normal inspection Respiratory: decreased breath sounds Cardiac/Chest: regular rate, rhythm, systolic murmur Abdomen: normal bowel sounds, non-tender, soft Extremities: swelling ICD10 Worksheet Patient Problems: Problems Problem Status Onset Hyperkalemia Acute Renal failure, acute Acute Uremia Acute Volume overload Acute
[2017-01-10] MEDS ORDERED: PROPOFOL/EMULSION 500 MG/50 ML BOTTLE IV ONE (10:03)
[2017-01-10] MEDS ORDERED: fentaNYL 100 MCG/2 ML INJ ONE ×3 (10:03→12:46)
[2017-01-10] MEDS ORDERED: HYDROmorphONE/DILAUDID 1 MG/ML SYR IVP PRN (10:07)
[2017-01-10] MEDS ORDERED: METOCLOPRAMIDE 10 MG/2 ML VIAL ONE ×2 (10:07)
[2017-01-10] MEDS ORDERED: LIDOCAINE 2% 5 ML SDV ONE (10:10)
[2017-01-10] MEDS ORDERED: ONDANSETRON 4 MG/2 ML VIAL ONE (10:19)
[2017-01-10] MEDS ORDERED: PHENYLEPHRINE HCL 100 MCG/ML SYR ONE (10:20)
[2017-01-10] MEDS ORDERED: HEPARIN 10,000 UNIT/10 ML MDV ONE (10:46)
--- NOTE | 2017-01-10 11:53 | POSTOPPROG ---
Post Op Note Date of Operation: 01/10/17 Surgeon: Mitch Rivera [employer] Observer Helper: Cooper Cruz Anesthesiologist: Dr Gayle Anesthesia: GET(General Endotracheal) Pre-op Diagnosis: renal failure, need for IV access Post-op Diagnosis: same Indication: need for access Procedure: LUE AVF, Tunneled catheter placement Inf/Abcess present in the surg proc area at time of surgery?: No EBL: Minimal
[2017-01-10] MEDS ORDERED: HEPARIN 5,000 UNIT/0.5 ML SYR ONE (12:02)
[2017-01-10] MEDS ORDERED: HEPARIN 50,000 UNIT/10 ML VIAL DIAL ONE (12:30)
[2017-01-10] MEDS ORDERED: ceFAZolin 2 GM/DEXTROSE 100 ML IV ONE (13:04)
[2017-01-10] MEDS: HYDROCODONE/APAP 5/325 TAB PO PRN ×2 (14:05→21:30)
--- NOTE | 2017-01-10 15:04 | SOAPPROG ---
SOAP Progress Note Assessment/Plan: Assessment:Plan: s/p AVF and tunneled dialysis catheter placement Stable at onset of dialysis 01/10/17 15:03 Objective: Vital Signs Temp Pulse Resp BP Pulse Ox 36.6 C 87 16 125/70 H 98 01/10/17 13:43 01/10/17 14:06 01/10/17 14:06 01/10/17 14:06 01/10/17 14:06 Laboratory Results 01/10/17 06:20 01/10/17 06:20 01/09/17 01/10/17 01/11/17 05:59 05:59 05:59 Intake Total 890 300 600 Output Total 35 Balance 890 300 565 PT 14.0 SEC (12.0-15.0) 01/07/17 11:16 INR 1.09 (0.83-1.16) 01/07/17 11:16 ICD10 Worksheet Patient Problems: Problems Problem Status Onset Hyperkalemia Acute Renal failure, acute Acute Uremia Acute Volume overload Acute
[2017-01-10] MEDS: ONDANSETRON DISINTEGRATING 4 MG TAB PO PRN (15:23)
--- NOTE | 2017-01-10 16:25 | HOSPPROG ---
Hospitalist Progress Note Assessment/Plan: INTERVAL SUMMARY & DAILY PROGRESS NOTE DATE OF ADMISSION: 01/02/2017 INTERVAL DIAGNOSES 1. Acute kidney injury on chronic kidney disease 2. Acute metabolic acidosis 3. Acute uremia 4. Acute hypocalcemia 5. Anemia of end-stage renal disease 6. Diabetes mellitus type 1 7. Chronic hypertension 8. Severe vitamin-D deficiency CONSULTATIONS Nephrology PROCEDURES / IMAGING 01/03/2017 central venous catheter for dialysis access placed, 01/10/2017 tunneled cath placement and AV fistula left arm CHIEF COMPLAINT Weakness, shortness of breath SUBJECTIVE Patient reports that he is less short of breath, continues to experience pain in his right chest and left upper extremity HOSPITAL COURSE BY PROBLEM The patient presented with weakness and shortness of breath most likely secondary to acute worsening of his chronic kidney disease resulting in metabolic acidosis, uremia, hypervolemia. He received hemodialysis and his symptoms began to improve. He received a kidney biopsy to determine the exact etiology of his kidney disease, biopsy results are currently pending. He received aggressive calcium replacement as well as blood product and erythropoietin as well as iron. Outpatient hemodialysis was arranged, and a tunnel cath as well as AV fistula were placed. Assessment: 51-year-old male presents with acute kidney injury on chronic kidney disease Plan: # JOAN on CKD. Suspect evolving ESRD in setting of DM1 and HTN - Hgb stable post-bx - tunnel cath and AV fistula today, HD tomorrow, then discharge - d/w Dr. Aguilera, advises that patient has MWF HD arrange as outpt beginning # Metabolic acidosis. Acute, bicarb 15, 2/2 renal disease, improving w/ HD # Uremia. Acute, BUN 150s, 2/2 renal disease, improving w/ HD # Hypocalcemia. 2/2 renal disease and exacerbated by secondary hyperparathyroidism - s/p HD and calcium # Anemia. 2/2 ESRD, normal iron studies - s/p 4u PRBC, Epo, IV iron # DM1. Reduced insulin # HTN. Chronic, cont metop 100mg bid, nifedipine 30mg bid, hydral 25mg tid # Vitamin D deficiency. Replete w/ high dose weekly x 8 weeks Diet. Renal PPx. SCDs given surg Code. Full Dispo. ADD 01/11, requiring HD tomorrow since he cannot get outpt HD until 01/14 Subjective: Patient reports that he has some pain in his right chest and left upper extremity status post surgery Objective: Vital Signs Temp Pulse Resp BP Pulse Ox 36.6 C 87 16 125/70 H 98 01/10/17 13:43 01/10/17 14:06 01/10/17 14:06 01/10/17 14:06 01/10/17 14:06 Laboratory Results 01/10/17 06:20 01/10/17 06:20 01/09/17 01/10/17 01/11/17 05:59 05:59 05:59 Intake Total 890 300 600 Output Total 35 Balance 890 300 565 PT 14.0 SEC (12.0-15.0) 01/07/17 11:16 INR 1.09 (0.83-1.16) 01/07/17 11:16 - Pending Discharge Pending Discharge Within 24 Hours: Yes Pending Discharge Date: 01/11/17 Pending Discharge Time: 11:00 - Physical Exam Constitutional: no apparent distress, obese, uncomfortable, No not in pain Cardiovascular: edema (Trace bilateral lower extremity), No systolic murmur, No irregularly irregular, No tachycardia Respiratory: inspiratory crackles (Bilateral bases), No reduced air movement, No expiratory wheeze, No bronchial breath sounds, No respiratory distress Gastrointestinal: normoactive bowel sounds, soft, non-tender abdomen, no palpable masses Skin: other (Bandaged left upper extremity, tunnel catheter in right chest, no surrounding erythema, no induration, no fluctuance, mild tenderness) Neurologic: AAOx3, sensation intact bilaterally Psychiatric: interacting appropriately, not encephalopathic, thought process linear, flat affect ICD10 Worksheet Patient Problems: Problems Problem Status Onset Renal failure, acute Acute Hyperkalemia Acute Volume overload Acute Uremia Acute
[2017-01-10] MEDS: ATORVASTATIN CALCIUM 40 MG TAB PO SCH (21:32)
--- NOTE | 2017-01-10 23:19 | SOAPPROG ---
SOAP Progress Note Assessment/Plan: Assessment: 0K POSTOP GOOD THRILL IN AVF/ CXR OK Plan:PER RENAL 01/10/17 23:18 Objective: Vital Signs Temp Pulse Resp BP Pulse Ox 36.8 C 84 16 170/84 H 96 01/10/17 20:17 01/10/17 20:17 01/10/17 20:17 01/10/17 20:17 01/10/17 20:17 Laboratory Results 01/10/17 06:20 01/10/17 06:20 01/09/17 01/10/17 01/11/17 05:59 05:59 05:59 Intake Total 672 300 8733 Output Total 35 Balance 793 489 7193 PT 14.0 SEC (12.0-15.0) 01/07/17 11:16 INR 1.09 (0.83-1.16) 01/07/17 11:16 ICD10 Worksheet Patient Problems: Problems Problem Status Onset Hyperkalemia Acute Renal failure, acute Acute Uremia Acute Volume overload Acute
[2017-01-11] MEDS: HYDROCODONE/APAP 5/325 TAB PO PRN ×2 (06:09→11:40)
[2017-01-11 06:16] VITALS: RESP 18
[2017-01-11 06:39] LABS: % IMMATURE GRANULYOCYTES 0.5 % (0.0-1.1); ABSOLUTE IMMATURE GRANULOCYTES 0.06 10^3/uL (0.00-0.10); ADD DIFF? NO; ADD MORPH? NO; ADD SCAN? NO; ATYPICAL LYMPHOCYTE FLAG 30 (0-99); FRAGMENT RBC FLAG 0 (0-99); HEMATOCRIT 27.4 % (40.0-51.0); HEMOGLOBIN 9.1 g/dL (13.7-17.5); LEFT SHIFT FLG 0 (0-99); LIPEMIA HEMOLYSIS FLAG 80 (0-99); MEAN CELL HEMOGLOBIN 30.4 pg (27.9-34.1); MEAN CELL HEMOGLOBIN CONCENTR. 33.2 g/dL (32.4-36.7); MEAN CELL VOLUME 91.6 fL (81.5-99.8); MEAN PLATELET VOLUME 10.1 fL (8.7-11.7); PLATELET CLUMPS FLAG 0 (0-99); PLATELET COUNT 174 10^3/uL (150-400); RED BLOOD CELL COUNT 2.99 10^6/uL (4.40-6.38); RED CELL DISTRIBUTION WIDTH 14.5 % (11.5-15.2)
[2017-01-11 07:12] VITALS: BP 140/78; PULSE 81; TEMP 98.2; O2SAT 98
[2017-01-11 07:13] LABS: ALBUMIN 2.6 g/dL (3.5-5.0); ANION GAP 8 mEq/L (8-16); CALCIUM 7.7 mg/dL (8.5-10.4); CARBON DIOXIDE 26 mEq/l (22-31); CHLORIDE 100 mEq/L (97-110); CREATININE 6.4 mg/dL (0.7-1.3); GLOMERULAR FILTRATION RATE 9; GLUCOSE 113 mg/dL (70-100); POTASSIUM 4.7 mEq/L (3.5-5.2); SODIUM 134 mEq/L (134-144)
[2017-01-11] MEDS: INSULIN 70/30 HUMAN 100 UNITS/ML SYR SC SCH (07:41)
[2017-01-11] MEDS: INSULIN LISPRO 100 UNIT/ML SC SCH ×2 (09:35→12:42)
--- NOTE | 2017-01-11 09:59 | HOSPPROG ---
Hospitalist Progress Note Assessment/Plan: 51 yo M w likely esrd JOAN on CKD. Suspect evolving ESRD in setting of DM1 and HTN - Hgb stable post-bx - tunnel cath and AV fistula today, HD tomorrow, then discharge - d/w Dr. Aguilera, advises that patient has MWF HD arrange as outpt beginning Metabolic acidosis. Acute, bicarb 15, 2/2 renal disease, improving w/ HD # Uremia. Acute, BUN 150s, 2/2 renal disease, improving w/ HD # Hypocalcemia. 2/2 renal disease and exacerbated by secondary hyperparathyroidism - s/p HD and calcium # Anemia. 2/2 ESRD, normal iron studies - s/p 4u PRBC, Epo, IV iron # DM1. Reduced insulin # HTN. Chronic, cont metop 100mg bid, nifedipine 30mg bid, hydral 25mg tid # Vitamin D deficiency. Replete w/ high dose weekly x 8 weeks home today > 30 minutes Subjective: seen in HD. outpt HD arranged Objective: Vital Signs Temp Pulse Resp BP Pulse Ox 36.8 C 81 18 140/78 H 98 01/11/17 07:06 01/11/17 07:06 01/11/17 07:06 01/11/17 07:06 01/11/17 07:06 Laboratory Results 01/11/17 06:10 01/11/17 06:10 01/10/17 01/11/17 01/12/17 05:59 05:59 05:59 Intake Total 300 1365 Output Total 35 Balance 300 1330 PT 14.0 SEC (12.0-15.0) 01/07/17 11:16 INR 1.09 (0.83-1.16) 01/07/17 11:16 - Physical Exam Constitutional: no apparent distress, appears nourished Eyes: PERRL, anicteric sclera Ears, Nose, Mouth, Throat: moist mucous membranes, hearing normal Cardiovascular: regular rate and rhythym, no murmur, rub, or gallop Respiratory: no respiratory distress, no rales or rhonchi Gastrointestinal: normoactive bowel sounds, soft, non-tender abdomen Genitourinary: No miller in urethra Skin: warm, normal color Musculoskeletal: full muscle strength Neurologic: AAOx3 ICD10 Worksheet Patient Problems: Problems Problem Status Onset Hyperkalemia Acute Renal failure, acute Acute Uremia Acute Volume overload Acute
--- NOTE | 2017-01-11 10:36 | SOAPPROG ---
SOAP Progress Note Assessment/Plan: Assessment/Plan: ESRD: Biopsy shows severe diabetic nephropathy, pt is now dialysis dependent. - HD being done today. - Pt to continue HD on MWF schedule, is set up for dialysis at [facility] on MWF at 6:30am. Anemia: pt will continue epo and iron per outpatient dialysis unit protocol. HTN: improved on current meds. JAMES: Hypocalcemia improved, phos still elevated but improving. - Will continue calcitriol. - Will continue calcium acetate with meals. Subjective: No acute events overnight. Pt feeling well overall, hoping to go home soon. He has no issues on HD today. Objective: Vital Signs Temp Pulse Resp BP Pulse Ox 36.8 C 81 18 140/78 H 98 01/11/17 07:06 01/11/17 07:06 01/11/17 07:06 01/11/17 07:06 01/11/17 07:06 Laboratory Results 01/11/17 06:10 01/11/17 06:10 01/10/17 01/11/17 01/12/17 05:59 05:59 05:59 Intake Total 300 1365 Output Total 35 Balance 300 1330 PT 14.0 SEC (12.0-15.0) 01/07/17 11:16 INR 1.09 (0.83-1.16) 01/07/17 11:16 General: alert and oriented, no acute distress Eyes; EOMI, PERRL OP: Clear CV: RRR Resp: nonlabored respirations on NC Abd; soft, NT/ND Ext: trace edema BLE Neuro: CN II-XII grossly intact, no asterixis Psych: cooperative, appropriate mood and affect Access; R IJ tunneled catheter ICD10 Worksheet Patient Problems: Problems Problem Status Onset Hyperkalemia Acute Renal failure, acute Acute Uremia Acute Volume overload Acute
[2017-01-11] MEDS: METOPROLOL TARTRATE 100 MG TAB PO SCH (11:32)
[2017-01-11] MEDS: hydrALAZINE 25 MG TAB PO SCH ×2 (11:32→16:21)
[2017-01-11] MEDS: NIFEdipine ER 30 MG TAB PO SCH (11:32)
[2017-01-11] MEDS: CALCITRIOL 0.25 MCG CAP PO SCH (11:32)
[2017-01-11] MEDS: CALCIUM ACETATE 667 MG CAP PO SCH ×2 (11:32→12:44)
[2017-01-11] MEDS: SODIUM FERRIC GLUCONAT/SUCROSE 125 MG in NS 100 ML IV SCH (11:33)
--- NOTE | 2017-01-11 13:10 | SOAPPROG ---
SOAP Progress Note Assessment/Plan: Assessment: 51yo male s/p LUE AVF and tunneled catheter placement, POD 1 No complaints, no significant pain PE awake, sitting up on edge of bed no erythema around tunneled cath LUE thrill present, normal radius pulse to palpation Plan: ok to d/c from general surgery standpoint put F/U instructions in D/C plan 01/11/17 13:07 Objective: Vital Signs Temp Pulse Resp BP Pulse Ox 36.8 C 81 18 140/78 H 98 01/11/17 07:06 01/11/17 07:06 01/11/17 07:06 01/11/17 07:06 01/11/17 07:06 Laboratory Results 01/11/17 06:10 01/11/17 06:10 01/10/17 01/11/17 01/12/17 05:59 05:59 05:59 Intake Total 300 1365 Output Total 35 Balance 300 1330 PT 14.0 SEC (12.0-15.0) 01/07/17 11:16 INR 1.09 (0.83-1.16) 01/07/17 11:16 ICD10 Worksheet Patient Problems: Problems Problem Status Onset Hyperkalemia Acute Renal failure, acute Acute Uremia Acute Volume overload Acute
[2017-01-11] MEDS: EPOETIN ALFA 10,000 UNIT/ML VIAL SC SCH (14:30)
--- NOTE | 2017-01-11 19:07 | GDS ---
[f rep st] DISCHARGE SUMMARY DISCHARGE DIAGNOSES: 1. End-stage renal disease, initiated on dialysis. 2. Metabolic acidosis, resolved. 3. Uremia, resolved. 4. Hypercalcemia, resolved. 5. Anemia secondary to end-stage renal disease. 6. Type 1 diabetes. PROCEDURES DURING ADMISSION: 1. AV fistula placed on 01/10/2017. 2. Tunneled catheter placed on 01/10/2017. 3. Portable central venous catheter for dialysis, 01/03/2017. HOSPITAL COURSE: The patient presented with shortness of breath in the setting of metabolic acidosi s, uremia and hyperkalemia. He was initiated on dialysis. He had a kidney biopsy performed on the , the results of which are pending at this time. He is followed by Nephrology. Outpatient dialy sis this tablet in [place]. He is discharged today. /[id number]/MODL
--- NOTE | 2017-01-13 18:42 | GCON ---
[f rep st] CONSULTATION DATE OF CONSULTATION: 01/09/2017 The patient is a 51-year-old diabetic male with chronic renal failure. I was request to see the pat lauren for placement of a tunneled Palindrome catheter and an AV fistula. He is an insulin dependent type 1 diabetic. He also has hypertension and hyperlipidemia. ALLERGIES: None. MEDICATIONS: Lantus insulin, Lasix, Lipitor, metoprolol, and Tradjenta. PAST MEDICAL HISTORY: Includes hypertension, hyperlipidemia, diabetes, chronic renal failure. FAMILY HISTORY: Positive for diabetes. SOCIAL HISTORY: Reveals he does not smoke. REVIEW OF SYSTEMS: Reveals no major other medical problems other than related to present illness. PHYSICAL EXAM: GENERAL: Reveals an alert 51-year-old male in no acute distress. HEAD and NECK: B enign without icterus or adenopathy. He has a temporary dialysis catheter in his right neck. CHEST : Clear and symmetric. CARDIAC: Regular rhythm. ABDOMEN: Soft without masses or tenderness. EX TREMITIES: Benign with full pulses. Specifically, his left arm has good radial and brachial pulses . He has poor veins in his forearm but adequate pains in his upper arm on physical exam. IMPRESSION: Chronic renal failure secondary to diabetes. PLAN: 1. A tunneled dialysis catheter. 2. Left arm AV fistula. /[id number]/MODL
--- NOTE | 2017-01-13 20:47 | GOP ---
[f rep st] OPERATIVE REPORT DATE OF OPERATION: 01/10/2017 SURGEON: Mitch Rivera MD FINANCE ADVISOR: Cooper Cruz PA-C ANESTHESIOLOGIST: Deondre Crump DO. PREOPERATIVE DIAGNOSIS: Chronic renal failure. POSTOPERATIVE DIAGNOSIS: Chronic renal failure. PROCEDURE PERFORMED: 1. Left arm ultrasound vein mapping. 2. Left brachiocephalic arteriovenous fistula. FINDINGS: The patient was found to have an excellent cephalic vein in the upper arm, as the cephali c vein at the wrist was small. Basilic vein was also quite adequate. ESTIMATED BLOOD LOSS: Less than 25 cc. DESCRIPTION OF PROCEDURE: The patient was taken to the operating room where he received satisfactor y general endotracheal anesthesia by Dr. Crump. He was placed in the supine position with his left arm outstretched on an arm board, prepped and draped in usual sterile fashion. Ultrasound was used to map the veins in his arm with the above-noted findings. It was elected because of his diab etes to proceed with an upper arm brachiocephalic AV fistula. A curvilinear incision was made in th e antecubital space. Dissection was carried down through the biceps aponeurosis and the brachial ar chema was dissected free and controlled with vessel loops. The cephalic vein was then dissected free above and below the antecubital space. It was dissected down into the forearm to the point where i t bifurcates. At that point, it was ligated and divided and rotated over to the brachial artery, wh ere an end-to-side anastomosis was made between the cephalic vein and the brachial artery. This was done with a running 6-0 Prolene suture. Flow was first established through the AV fistula and then back down the hand, preserving a good pulse distally with good capillary filling, and an excellent thrill in the fistula. Heparin was reversed with protamine. The wound was instilled with some topi lizbet thrombin and infiltrated with 0.5% Marcaine and closed in layers using 3-0 Vicryl for the subcut aneous tissue and 4-0 Monocryl subcuticular stitch for the skin. All layers were infiltrated with 0 .5% Marcaine. Blood loss was negligible. No complications. Taken to the recovery room in good con dition. COMPLICATIONS: None. /[id number]/MODL
[2017-01-13] MEDS ORDERED: HEPARIN 50,000 UNIT/10 ML VIAL ONE (21:14)
--- NOTE | 2017-01-13 21:18 | GOP ---
[f rep st] OPERATIVE REPORT DATE OF OPERATION: 01/10/2017 SURGEON: Mitch Rivera MD ANESTHESIOLOGIST: Deondre Crump DO PREOPERATIVE DIAGNOSIS: Chronic renal failure. POSTOPERATIVE DIAGNOSIS: Chronic renal failure. PROCEDURE PERFORMED: Right internal jugular palindromic tunneled catheter placement. FINDINGS: good position and flow DESCRIPTION OF PROCEDURE: The patient was in the operating room under general endotracheal anesthesia by Dr. Crump. He was placed in the Trendelenburg position. A guidewire was introduced into the right jugular vein. Position was confirmed with fluoroscopy. A tunneled palindromic catheter was brought in through a separate stab incision in the anterior chest wall and tunneled up over the clavicle to the guidewire insertion site which had been excised and debrided from the previous catheter in that area. Dilators were passed over the guidewire and then the palindromic catheter was introduced through the dilator sheath and introducer system, which was removed. Good backflow was present in the catheter. Good position was confirmed with fluoroscopy. The catheter was instilled with an appropriate amount of 5000 units/cc heparin. Secured at the exit site with interrupted 4-0 Prolene sutures and the entrance site was closed with 4-0 Prolene mattress sutures. He tolerated the procedure well. There were no complications. He was taken to the recovery room in good condition. /[id number]/MODL MTDD
== END 2017-01-11 17:59 | disposition home or self-care (01) | DRG 674 ==
LOC: F2N 19:46 → F2W 01-04 21:56
PROVIDERS: ADMIT Internal Medicine; ATTEND Internal Medicine
PROC: 5A1D60Z (ICD-10-PCS; 2017-01-03)
PROC: 02HV33Z Insertion of Infusion Device into Superior Vena Cava, Percutaneous Approach (ICD-10-PCS; 2017-01-03)
PROC: 30233N1 Transfusion of Nonautologous Red Blood Cells into Peripheral Vein, Percutaneous Approach (ICD-10-PCS; 2017-01-03)
PROC: 0TB13ZX Excision of Left Kidney, Percutaneous Approach, Diagnostic (ICD-10-PCS; 2017-01-08)
PROC: 03170ZD Bypass Right Brachial Artery to Upper Arm Vein, Open Approach (ICD-10-PCS; principal; 2017-01-10 12:30)
PROC: 05HM33Z Insertion of Infusion Device into Right Internal Jugular Vein, Percutaneous Approach (ICD-10-PCS; principal; 2017-01-10 12:30)
DX: N18.6 End stage renal disease (principal); N25.81 Secondary hyperparathyroidism of renal origin; E10.69 Type 1 diabetes mellitus with other specified complication; E10.21 Type 1 diabetes mellitus with diabetic nephropathy; D63.8 Anemia in other chronic diseases classified elsewhere; I12.0 Hypertensive chronic kidney disease with stage 5 chronic kidney disease or end stage renal disease; Z79.4 Long term (current) use of insulin
CPT/HCPCS: 82595-90; 83010-90; 83516-90; 83520-90; 84166-90; 86705-90; 88305-90; 88313-90; 88346-90; 88348-90; 96374; 97161-GP; 97165-GO; 97535-GO; C1750; G0472; J0610; J0690; J0885; J1170; J1644; J1815; J2250; J2370; J2405; J2440; J2704; J2720; J2765; J2916; J3010; P9016; P9021

== ENCOUNTER 2017-06-20 08:18 | Day surgery (SDC) | payer OTHER ==
[2017-06-20 09:40] LABS: HEMATOCRIT 27.9 % (40.0-51.0); HEMOGLOBIN 9.2 g/dL (13.7-17.5)
[2017-06-20] MEDS ORDERED: NALOXONE HCL 0.4 MG/ML INJ ONE (09:47)
[2017-06-20] MEDS ORDERED: FLUMAZENIL 0.5 MG/5 ML MDV IVP ONE (09:47)
[2017-06-20] MEDS ORDERED: MIDAZOLAM 2 MG/2 ML VIAL ONE (09:48)
[2017-06-20] MEDS ORDERED: fentaNYL 100 MCG/2 ML INJ ONE (09:48)
[2017-06-20 09:49] LABS: INR 1.05 (0.83-1.16); PROTIME(PATIENT) 13.6 SEC (12.0-15.0)
[2017-06-20 09:50] LABS: APTT 29.4 SEC (23.0-38.0)
[2017-06-20] MEDS ORDERED: CEFAZOLIN 1 GM/DEXTROSE/50 ML BAG IV ONE (09:54)
[2017-06-20] MEDS ORDERED: LIDOCAINE 1% 300 MG/30 ML SDV ONE (10:40)
[2017-06-20 11:40] VITALS: O2SAT 100
[2017-06-20 11:48] VITALS: TEMP 97.3
== END 2017-06-20 11:40 | disposition home or self-care (01) ==
LOC: FIMAGING 08:18
PROVIDERS: ATTEND Radiology Diagnostic Radiology
PROC: 0WPG33Z Removal of Infusion Device from Peritoneal Cavity, Percutaneous Approach (ICD-10-PCS; principal; 2017-06-20 10:54)
DX: N18.6 End stage renal disease (principal)
CPT/HCPCS: 49422; 99152; C1769; J0690; J2250; J2310; J3010

== ENCOUNTER 2017-06-23 06:47 | Emergency (ER) | payer OTHER ==
[2017-06-23 06:56] VITALS: BP 183/88; PULSE 102; RESP 14; TEMP 98.1; O2SAT 97
[2017-06-23] MEDS ORDERED: FLUORESCEIN SODIUM 1 MG STRIP OP ONE (07:02)
[2017-06-23] MEDS ORDERED: PROPARACAINE 0.5% 15 ML OPHT DROP ONE (07:02)
--- NOTE | 2017-06-23 07:03 | EDPHY ---
HPI/HX/ROS/PE/MDM Narrative: CHIEF COMPLAINT: Vision Changes HPI: The patient is a 52 y/o male arriving with his complaining of vision changes onset Saturday, 2 days ago. He has a history of insulin dependant diabetes and was admitted 01/02/17 for chronic renal failure. His vision changes began 2 days ago. He describes a large dark spot in the center and lateral left field of vision that takes up half of his vision. In his right eye he describes two smaller dark spots in his right field of vision. He only noticed his vision changes after his mentioned his eyes looked red. He denies associated eye pain or preceding trauma. He has a history of panretinal photocoagulation for pre-proliferative diabetic retinopathy in 2013. He notes his dialysis port was removed last week. He mentions he had a cleaning solution sprayed in his eyes while cleaning pots yesterday. The patient is a poor historian. REVIEW OF SYSTEMS: Aside from elements discussed in the HPI, a comprehensive 10-point review of systems was reviewed and is negative. PMH: Type 1 Diabetes - Insulin, Dialysis, Hypertension, Hyperlipidemia, Bilateral Panretinal Photocoagulation by Dr. Herron in 2012. SOCIAL HISTORY: at bedside. Employed. No tobacco. Prior medical records reviewed, including admission 01/02/17 for chronic renal failure. PHYSICAL EXAM: General:Patient is alert, in no acute distress, sitting in a dark room. HEENT: Left retina is not visible on funduscopic exam, right retina normal. Intraocular pressure is 15 bilaterally. Mild bilateral conjunctival injection. ENT inspection normal. Neck: Normal inspection. Full range of motion. Respiratory:No respiratory distress. Skin: Normal color. No rash. Warm and dry. Extremities: Normal appearance. Full range of motion. Left arm AV fistula. Neuro: Oriented x3. Normal motor function. Normal sensory function. ED Course: 743: Consulted with Dr. Farnsworth, Ophthalmology. Based on description he believes this is likely a vitreous hemorrhage and recommends outpatient follow up tomorrow morning with his office. He also recommends for the patient to sleep in an upright position. MDM: This patient presents with painless vision loss, primarily in left eye, in the setting of ESRD and history of diabetic retinopathy. I described physical exam findings to crop nutrition scientist Ophtho and they will see in office tomorrow morning. The patient has no signs of glaucoma, corneal abrasion, hyphema, CVA or ocular trauma. He is comfortable with this plan. General Initial Vital Signs: Initial Vital Signs Temperature (C) 36.7 C 06/23/17 06:50 Heart Rate 102 H 06/23/17 06:50 Respiratory Rate 14 06/23/17 06:50 Blood Pressure 183/88 H 06/23/17 06:50 O2 Sat (%) 97 06/23/17 06:50 O2 Delivery Mode Room Air Allergies/Adverse Reactions: No Known Allergies Allergy (Verified 01/02/17 17:38) Home Medications: Medication Instructions Recorded Atorvastatin Calcium [Lipitor 40 40 mg PO HS 01/03/17 mg (*)] Calcium Carbonate [Tums 500MG (*)] 1,000 mg PO TIDMEAL 01/03/17 Furosemide [Lasix 80 MG (*)] 80 mg PO BIDDIUR 01/03/17 Insulin Aspart Novolog 70/30 55 units SC BIDAC 01/03/17 [Novolog Mix 70/30 (*)] Linagliptin [Tradjenta] 5 mg PO DAILY 01/03/17 Metoprolol Tartrate [Lopressor 100 100 mg PO BID 01/03/17 mg (*)] Calcitriol [Calcitriol (*)] 0.25 mcg PO MWF #15 cap 01/11/17 Calcium Acetate [Phoslo (*)] 1,334 mg PO TIDMEAL #90 cap 01/11/17 Hydrocodone/APAP 5/325 [[place] 2 tab PO Q4HRS PRN #12 tab 01/11/17 5/325 (*)] NIFEdipine ER [Adalat CC 30 mg (*)] 30 mg PO BID #60 tab 01/11/17 hydrALAZINE [Apresoline] 25 mg PO TID #90 tab 01/11/17 Departure - Departure Disposition: Home, Routine, Self-Care Clinical Impression: Vitreous hemorrhage of left eye Condition: Good Instructions: Visual Floaters (ED) Additional Instructions: 1. Sleep in an upright position. Do not lie flat until cleared by eye doctor. 2. Call Dr. Farnsworth's office first thing tomorrow morning to schedule a same day appointment without fail. You must be seen by an eye doctor tomorrow to evaluate your vision changes. 3. If you experience any eye pain, severe headache, or further vision loss return to the emergency department immediately. Referrals: Maya Ag MD [Primary Care Provider] - As per Instructions Luis Eduardo Farnsworth MD [Medical Doctor] - As per Instructions Report Scribed for: Travis Jarrell Report Scribed by: Nereida Mcdonald Date of Report: 06/23/17 Time of Report: 07:03 Physician Review and Approval Statement: Portions of this note were transcribed by an ED scribe. I personally performed the history, physical exam, and medical decision making; and confirm the accuracy of the information in the transcribed note.
== END 2017-06-23 08:08 | disposition home or self-care (01) ==
DX: H43.12 Vitreous hemorrhage, left eye (principal); E10.9 Type 1 diabetes mellitus without complications; N18.9 Chronic kidney disease, unspecified; I12.9 Hypertensive chronic kidney disease with stage 1 through stage 4 chronic kidney disease, or unspecified chronic kidney disease

== ENCOUNTER 2018-05-29 01:46 | Emergency (ER) | payer OTHER ==
--- NOTE | 2018-05-29 01:57 | EDPHY ---
H & P Stated Complaint: Constipated x2 days - Rectal pain Time Seen by Provider: 05/29/18 01:57 HPI/ROS: HPI CHIEF COMPLAINT: Constipation, urge to go HISTORY OF PRESENT ILLNESS: Very pleasant 53-year-old male, history of insulin- dependent diabetes, renal failure, on hemodialysis in his left arm AV fistula presents emergency room with 2-3 days of constipation. Patient states that he has been trying to use the bathroom multiple times been unable to do so. He feels very constipated. He complains of lateral rectal pressure rectal pain. Denies any bleeding, denies vomiting, denies fever, denies abdominal pain. States he has the urge to go every 30 min but is unable to do so. Does state he had a colonoscopy 1 week ago. Past Medical History: Insulin-dependent diabetes, renal failure on hemodialysis Past Surgical History: left arm AV fistula Social History: Denies drugs alcohol tobacco. Family History: Noncontributory ROS REVIEW OF SYSTEMS: A comprehensive 10 point review of systems is otherwise negative aside from elements mentioned in the history of present illness. Exam Constitutional appears well nontoxic no acute distress triage nursing summary reviewed, vital signs reviewed, awake/alert. Eyes normal conjunctivae and sclera, EOMI, PERRLA. HENT normal inspection, atraumatic, moist mucus membranes, no epistaxis, neck supple/ no meningismus, no raccoon eyes. Respiratory clear to auscultation bilaterally, normal breath sounds, no respiratory distress, no wheezing. Cardiovascular rate normal, regular rhythm, no murmur, no edema, distal pulses normal. Gastrointestinal soft, non-tender, no rebound, no guarding, normal bowel sounds, no distension, no pulsatile mass. Genitourinary no CVA tenderness. Musculoskeletal left upper extremity AV fistula, no midline vertebral tenderness, full range of motion, no calf swelling, no tenderness of extremities , no meningismus, good pulses, neurovascularly intact. Skin pink, warm, & dry, no rash, skin atraumatic. Neurologic awake, alert and oriented x 3, AAOx3, moves all 4 extremities equally, motor intact, sensory intact, CN II-XII intact, normal cerebellar, normal vision, normal speech. Psychiatric normal mood/affect. Heme/Lymph/Immune no lymphadenopathy. Differential Diagnosis: Includes but is not limited to in a particular order: Constipation, ileus, bowel obstruction, fecal impaction Medical Decision Making: Plan for this patient KUB to rule out abnormal bowel gas pattern. If no evidence of obstructive pathology will proceed with enema. Re-evaluation: 0216: Patient's KUB shows significant amount of stool burden mainly to the ascending transverse and descending colon. Rectal vault. No free air no evidence of obstruction Plan for this patient will give soapsuds enema. And re-evaluate. Stool softener MiraLax at home. Patient had a soapsuds enema with good bowel movement is feeling much better. Denies any rectal pain or abdominal pain. States he feels much better would like to go home. - Personal History Current Tetanus/Diphtheria Vaccine: Unsure Current Tetanus Diphtheria and Acellular Pertussis (TDAP): Unsure - Medical/Surgical History Hx Asthma: No Hx Chronic Respiratory Disease: No Hx Diabetes: Yes Hx Cardiac Disease: No Hx Renal Disease: Yes Hx Cirrhosis: No Hx Alcoholism: No Hx HIV/AIDS: No Hx Splenectomy or Spleen Trauma: No Other PMH: PMHx: Diabetes, hypertension, kidney disease/renal failure - dialysis. PSHx: L upper arm dialysis shunt - Social History Smoking Status: Never smoked Constitutional: Initial Vital Signs Temperature (C) 36.9 C 05/29/18 01:50 Heart Rate 81 05/29/18 01:50 Respiratory Rate 16 05/29/18 01:50 Blood Pressure 159/85 H 05/29/18 01:50 O2 Sat (%) 97 05/29/18 01:50 O2 Delivery Mode Room Air Allergies/Adverse Reactions: No Known Allergies Allergy (Verified 01/02/17 17:38) Home Medications: Medication Instructions Recorded Atorvastatin Calcium [Lipitor 40 40 mg PO HS 01/03/17 mg (*)] Calcium Carbonate [Tums 500MG (*)] 1,000 mg PO TIDMEAL 01/03/17 Insulin Aspart Novolog 70/30 55 units SC BIDAC 01/03/17 [Novolog Mix 70/30 (*)] Linagliptin [Tradjenta] 5 mg PO DAILY 01/03/17 Metoprolol Tartrate [Lopressor 100 100 mg PO BID 01/03/17 mg (*)] Calcitriol [Calcitriol (*)] 0.25 mcg PO MWF #15 cap 01/11/17 Calcium Acetate [Phoslo (*)] 1,334 mg PO TIDMEAL #90 cap 01/11/17 NIFEdipine ER [Adalat CC 30 mg (*)] 30 mg PO BID #60 tab 01/11/17 hydrALAZINE [Apresoline] 25 mg PO TID #90 tab 01/11/17 Docusate Sodium [Dulcolax Stool 100 mg PO DAILY #14 capsule 05/29/18 Softener] Polyethylene Glycol 3350 [Miralax 17 gm PO DAILY #4 pkt 05/29/18 17 gm (*)] Departure - Departure Disposition: Home, Routine, Self-Care Clinical Impression: Constipation Qualifiers: Constipation type: slow transit constipation Qualified Code(s): K59.01 - Slow transit constipation Condition: Good Instructions: Constipation (ED) Additional Instructions: 1. Increase your fruits and vegetables drink lots of water 2. Stool softeners and MiraLax as prescribed. 3. Return emergency room if there is worsening abdominal pain fever vomiting. Prescriptions: Docusate Sodium [Dulcolax Stool Softener] 100 mg PO DAILY #14 capsule Polyethylene Glycol 3350 [Miralax 17 gm (*)] 17 gm PO DAILY #4 pkt
[2018-05-29 03:09] VITALS: BP 142/78
== END 2018-05-29 03:23 | disposition home or self-care (01) ==
DX: K59.01 Slow transit constipation (principal); E11.9 Type 2 diabetes mellitus without complications; I12.0 Hypertensive chronic kidney disease with stage 5 chronic kidney disease or end stage renal disease; N18.6 End stage renal disease; Z79.4 Long term (current) use of insulin; Z99.2 Dependence on renal dialysis

== ENCOUNTER 2018-07-16 12:40 | Observation (INO) | payer OTHER ==
--- NOTE | 2018-07-16 12:50 | EDPHY ---
H & P Time Seen by Provider: 07/16/18 12:50 HPI/ROS: Chief complaint. Chest pain HPI. 53-year-old male presents emergency department with multiple full complaints. He is an end-stage renal failure patient on dialysis. He was feeling a little bit tired when he went to dialysis and then at 10:00 a.m. Which was about 15 min prior to the dialysis he developed some central chest discomfort that he describes as"pain. It is still present but better. There was no radiation. His left arm felt tired but there was no discomfort to the arm. He had some cramping into the right thigh. His chest discomfort was not worse with exertion or deep breathing. He went home and had lunch in his discomfort was not worse eating although then he tells me it was worse after eating. He went outside in the yd and felt generally weak and dizzy and could not get back into the house unassisted. He says he had trouble with his vision which is now back to normal. He felt dizzy and weak. He did throw up once. The weakness was generalized. He is feeling better now. Tells me has no heart history and no family history of coronary artery disease ROS Constitutional. Generalized weakness Eyes. Trouble with vision transiently ENT. no sore throat, no nasal drainage Cardiovascular. Central chest pain Respiratory. No trouble breathing or cough Abdominal. Some cramping to both sides of his abdomen but that has resolved and he has no pain now . Dialysis still makes some urine MS. Right thigh cramping however no swelling and this is now resolved Skin. no rash Lymph. no swollen glands Neuro. Dizziness and difficulty walking Past Medical/Surgical History: Past medical history is significant for diabetes, hypertension, chronic renal failure on dialysis Social History: , nonsmoker, no alcohol Smoking Status: Never smoked Physical Exam: General Appearance: Alert well-developed male mild distress. Eyes: Pupils equal and round no pallor or injection. ENT, Mouth: Mucous membranes are moist. Respiratory: There are no retractions, lungs are clear to auscultation. Cardiovascular: Regular rate and rhythm. Gastrointestinal: Abdomen is soft and nontender, no masses, bowel sounds normal. Neurological: Awake and alert, sensory and motor exams grossly normal. Skin: Warm and dry, no rashes. Musculoskeletal: Neck is supple nontender. Extremities symmetrical, full range of motion. No obvious swelling. Psychiatric: Patient is oriented X 3, there is no agitation. Constitutional: Initial Vital Signs Temperature (C) 36.7 C 07/16/18 12:50 Heart Rate 81 07/16/18 12:50 Respiratory Rate 20 07/16/18 12:50 Blood Pressure 118/76 07/16/18 12:50 O2 Sat (%) 94 07/16/18 12:50 O2 Delivery Mode Room Air Allergies/Adverse Reactions: No Known Allergies Allergy (Verified 07/16/18 12:45) Home Medications: Medication Instructions Recorded Atorvastatin Calcium [Lipitor 40 40 mg PO HS 01/03/17 mg (*)] Calcium Carbonate [Tums 500MG (*)] 1,000 mg PO TIDMEAL 01/03/17 Insulin Aspart Novolog 70/30 55 units SC BIDAC 01/03/17 [Novolog Mix 70/30 (*)] Linagliptin [Tradjenta] 5 mg PO DAILY 01/03/17 Metoprolol Tartrate [Lopressor 100 100 mg PO BID 01/03/17 mg (*)] Calcitriol [Calcitriol (*)] 0.25 mcg PO MWF #15 cap 01/11/17 Calcium Acetate [Phoslo (*)] 1,334 mg PO TIDMEAL #90 cap 01/11/17 NIFEdipine ER [Adalat CC 30 mg (*)] 30 mg PO BID #60 tab 01/11/17 hydrALAZINE [Apresoline] 25 mg PO TID #90 tab 01/11/17 Docusate Sodium [Dulcolax Stool 100 mg PO DAILY #14 capsule 05/29/18 Softener] Polyethylene Glycol 3350 [Miralax 17 gm PO DAILY #4 pkt 05/29/18 17 gm (*)] Medical Decision Making - Diagnostics EKG Interpretation: EKG interpreted by me shows normal sinus rhythm normal interval and axis. QRS shows LVH. There is no significant ST elevation or depression. There is 1 Pac. The rate is 77 No change from previous 01/18 Imaging Results: Imaging Impressions Chest X-Ray 07/16/18 13:27 Impression: Negative. Procedures: IV normal saline, monitor ED Course/Re-evaluation: kyrgyz interpretor Umesh On re-evaluation the patient tells me he is feeling better At about 3:25 p.m. Patient is a has terrible leg cramps. He is given a little bit of fluids at 3:45 a.m. No longer has pain Patient and I and family have discussed laboratory an EKG evaluation. We discussed treatment plan including recommendation for admission. They expressed understanding and agreement I consulted discussed case with Dr. Calos quinonez, hospitalist, who agrees to the admission I consulted discussed the case with Dr. Cathernie for nephrology who will see the patient in consultation Differential Diagnosis: Patient with end-stage renal failure with chest pain and syncope today. I considered hypotension after dialysis, electrolyte abnormality a after dialysis , acute coronary syndrome. - Data Points Laboratory Results: Laboratory Results 07/16/18 13:06 07/16/18 13:06 07/16/18 07/16/18 07/16/18 15:36 15:06 13:06 WBC RBC Hgb Hct MCV MCH MCHC RDW Plt Count MPV Neut % (Auto) Lymph % (Auto) Crawford % (Auto) Eos % (Auto) Baso % (Auto) Nucleat RBC Rel Count Absolute Neuts (auto) Absolute Lymphs (auto) Absolute Monos (auto) Absolute Eos (auto) Absolute Basos (auto) Absolute Nucleated RBC Immature Gran % Immature Gran # PT INR APTT Sodium 143 mEq/L mEq/L (135-145) Potassium 3.8 mEq/L mEq/L (3.3-5.0) Chloride 93 mEq/L L mEq/L (97-110) Carbon Dioxide 33 mEq/l H mEq/l (22-31) Anion Gap 17 mEq/L H mEq/L (8-16) BUN 41 mg/dL H mg/dL (7-23) Creatinine 5.9 mg/dL H mg/dL (0.7-1.3) Estimated GFR 10 Glucose 74 mg/dL mg/dL (70-100) POC Glucose 52 mg/dL L mg/dL (70-100) Calcium 10.3 mg/dL mg/dL (8.5-10.4) POC Troponin I 0.01 ng/mL ng/mL (0.00-0.08) 07/16/18 07/16/18 07/16/18 13:06 13:06 13:04 WBC 6.95 10^3/uL 10^3/uL (3.80-9.50) RBC 3.34 10^6/uL L 10^6/uL (4.40-6.38) Hgb 10.7 g/dL L g/dL (13.7-17.5) Hct 30.8 % L % (40.0-51.0) MCV 92.2 fL fL (81.5-99.8) MCH 32.0 pg pg (27.9-34.1) MCHC 34.7 g/dL g/dL (32.4-36.7) RDW 13.2 % % (11.5-15.2) Plt Count 224 10^3/uL 10^3/uL (150-400) MPV 9.5 fL fL (8.7-11.7) Neut % (Auto) 40.8 % % (39.3-74.2) Lymph % (Auto) 37.0 % % (15.0-45.0) Crawford % (Auto) 10.6 % % (4.5-13.0) Eos % (Auto) 10.6 % H % (0.6-7.6) Baso % (Auto) 0.7 % % (0.3-1.7) Nucleat RBC Rel Count 0.0 % % (0.0-0.2) Absolute Neuts (auto) 2.83 10^3/uL 10^3/uL (1.70-6.50) Absolute Lymphs (auto) 2.57 10^3/uL 10^3/uL (1.00-3.00) Absolute Monos (auto) 0.74 10^3/uL 10^3/uL (0.30-0.80) Absolute Eos (auto) 0.74 10^3/uL H 10^3/uL (0.03-0.40) Absolute Basos (auto) 0.05 10^3/uL 10^3/uL (0.02-0.10) Absolute Nucleated RBC 0.00 10^3/uL 10^3/uL (0-0.01) Immature Gran % 0.3 % % (0.0-1.1) Immature Gran # 0.02 10^3/uL 10^3/uL (0.00-0.10) PT 13.6 SEC SEC (12.0-15.0) INR 1.02 (0.83-1.16) APTT 28.7 SEC SEC (23.0-38.0) Sodium Potassium Chloride Carbon Dioxide Anion Gap BUN Creatinine Estimated GFR Glucose POC Glucose Calcium POC Troponin I 0.01 ng/mL ng/mL (0.00-0.08) Medications Given: Discontinued Medications Sodium Chloride (Ns) 500 mls @ 3,000 mls/hr IV ONCE ONE Stop: 07/16/18 15:43 Last Admin: 07/16/18 15:35 Dose: 500 mls Point of Care Test Results: Chemistry 07/16/18 07/16/18 07/16/18 15:36 15:06 13:04 POC Glucose 52 mg/dL L mg/dL (70-100) POC Troponin I 0.01 ng/mL ng/mL 0.01 ng/mL ng/mL (0.00-0.08) (0.00-0.08) Departure - Departure Disposition: [facility] [place] Inpatient Acute Clinical Impression: Syncope and collapse Chest pain Qualifiers: Chest pain type: unspecified Qualified Code(s): R07.9 - Chest pain, unspecified Condition: Fair Referrals: NONE *PRIMARY CARE P,. [Primary Care Provider] - As per Instructions
[2018-07-16 13:11] LABS: PLATELET COUNT 224 10^3/uL (150-400)
[2018-07-16 13:24] LABS: INR 1.02 (0.83-1.16); PROTIME(PATIENT) 13.6 SEC (12.0-15.0)
--- NOTE | 2018-07-16 13:29 | CPEKG ---
Test Reason : OPEN Blood Pressure : / mmHG Vent. Rate : 077 BPM Atrial Rate : 078 BPM P-R Int : 111 ms QRS Dur : 095 ms QT Int : 416 ms P-R-T Axes : -04 071 054 degrees QTc Int : 471 ms Sinus rhythm Atrial premature complexes Probable left ventricular hypertrophy ST elev, probable normal early repol pattern Confirmed by Michel Boucher ([id number]) on 07/16/2018 1:29:08 PM Referred By: Confirmed By:Michel Boucher
[2018-07-16] MEDS ORDERED: NS 500 ML IV ONE (15:34)
[2018-07-16] MEDS ORDERED: ACETAMINOPHEN 325 MG TAB PO PRN (16:39)
[2018-07-16] MEDS ORDERED: ONDANSETRON 4 MG/2 ML VIAL IVP PRN (16:39)
[2018-07-16] MEDS ORDERED: HYDROCODONE/APAP 5/325 TAB PO PRN (16:39)
[2018-07-16] MEDS ORDERED: ONDANSETRON DISINTEGRATING 4 MG TAB PO PRN (16:39)
[2018-07-16] MEDS ORDERED: PROMETHAZINE HCL 25 MG/ML INJ IVP PRN (16:39)
[2018-07-16] MEDS ORDERED: oxyCODONE IR 5 MG TAB PO PRN (16:39)
[2018-07-16] MEDS ORDERED: hydrALAZINE 20 MG/ML VIAL IVP PRN (17:44)
[2018-07-16] MEDS ORDERED: LANTHANUM CARBONATE 500 MG PO PRN (18:39)
[2018-07-16] MEDS ORDERED: D50W 25 GM/50 ML SYR IVP PRN (18:42)
--- NOTE | 2018-07-16 19:13 | GHP ---
DATE OF ADMISSION: 07/16/2018 CHIEF COMPLAINT: Body aches and cramps after dialysis. HISTORY: This is a 53-year-old, end-stage renal disease patient, who is on his usual Saturday, Saturday, Saturday routine of hemodialysis, presenting to the ER after developing significant cramping and generalized pain during dialysis this morning. He notes the cramping was severe and he also had some weak chest pain at the same time. He left dialysis and went home and continued to have severe cramps in his legs. He went outside and had an episode of what sounds like near syncope where he felt very weak and dizzy and was essentially unable to walk back into the house without assistance. He notes he has never had similar symptoms in the past, although he has had some mild cramping previously with dialysis when they have taken off too much fluid. At the time of my evaluation , he states he feels "100% better" after receiving some fluids and some food in the emergency department. PAST MEDICAL HISTORY: Includes: 1. Diabetes. He is a type 1 diabetic. 2. Hypertension. 3. End-stage renal disease, on chronic hemodialysis. 4. Hyperlipidemia. PAST SURGICAL HISTORY: Includes AV fistula placement. SOCIAL HISTORY: Patient lives in [place] with his and son. He denies alcohol, tobacco, or illicit drug use. He works in a [employer]. REVIEW OF SYSTEMS: 10-point review of systems obtained, negative except as per HPI. MEDICATIONS: Include: 1. Hydralazine. 2. Valsartan. 3. Nifedipine. 4. Metoprolol. 5. Tradjenta. 6. Lanthanum. 7. Insulin aspirate. 8. Gabapentin. 9. Dialyvite with iron. 10. Calcium acetate. 11. Calcitriol. 12. Atorvastatin. ALLERGIES: No known drug allergies. PHYSICAL EXAM: VITAL SIGNS: BP 184/98, heart rate 80, respiratory rate 16, O2 sats 98% on room air. Temperature is 36.7. GENERAL APPEARANCE: This is a well -developed, well-nourished man. He is in no acute distress. EYES: Anicteric. HENT: Oropharynx clear. CARDIOVASCULAR: Regular rate and rhythm, no MRG. PULMONARY: CTA bilaterally. Normal work of breathing. ABDOMEN: Soft, nontender, nondistended. EXTREMITIES: No clubbing, cyanosis, or edema. SKIN: Warm, dry, well perfused. NEURO/PSYCH: Oriented, appropriate, pleasant. CLINICAL DATA: Labs reviewed notable for white blood cell count of 6.9, hematocrit of 30.8, platelets of 224. Coags are normal. Chemistry notable for initial glucose of 52, creatinine 5.9. Chest x-ray personally reviewed and interpreted, shows no acute findings. EKG, personally reviewed and interpreted, shows sinus rhythm, evidence of LVH, otherwise unremarkable. ASSESSMENT AND PLAN: This is a 53-year-old man, end-stage renal disease, currently undergoing hemodialysis, presenting with leg cramps and near-syncope from the dialysis unit. 1. Leg cramps/near syncope. All in all, this sounds most consistent with perhaps too much fluid removal. Could also be a contribution of hypoglycemia as next. This was discussed with Dr. Catherine of Renal who agrees that for now plan should be to give back some gentle hydration and monitor. His electrolytes appear normal at this time, although we will add on magnesium and phos just to be complete. At the time being, the patient states he feels 100% better, but does understand that given the severity of his presenting symptoms, he will be monitored overnight. 2. Hypoglycemia: present on admission in the setting of above, will monitor on SSI for now and resume his home regimen if his sugars remain in normal range. Will check HgbA1c. 3. Chest pressure. This does seem to have been a mild and brief episode of chest pressure in association with the all-over body pain the patient was experiencing. His EKG is not clearly ischemic, though he does have some LVH and repolarization abnormality. We will trend troponins overnight. We will monitor on telemetry. 4. Near syncope. As per above, I do suspect this is secondary to excessive fluid removal during dialysis. 5. End-stage renal disease. Renal has been consulted and will see patient in the morning. He will be resumed on his home medications. He will likely continue his usual thrice weekly hemodialysis and will need to consider if any changes need to be made in his regimen to avoid recurrent episodes such as today 's. 6. Hypertension. Currently, blood pressure has been significantly elevated. This in the setting of patient vomiting up his morning meds. Will provide p.r.n. IV hydralazine and restart his home medications and monitor. 7. Hyperlipidemia. We will continue his statin. 8. Disposition: Observation status. Suspect patient will require less than 48 -hour stay for evaluation and management of above. Patient is new to my care. Old records reviewed, summarized as per HPI and past medical history. Care plan reviewed with ER physician and Dr. Catherine of Renal. Further history obtained from patient's son present at bedside. /[id number]/MODL MTDD
[2018-07-16] MEDS: ATORVASTATIN CALCIUM 40 MG TAB PO SCH (20:04)
[2018-07-16] MEDS: NIFEdipine ER 30 MG TAB PO SCH (20:04)
[2018-07-17 04:26] LABS: PLATELET COUNT 200 10^3/uL (150-400)
[2018-07-17] MEDS ORDERED: hydrALAZINE 25 MG TAB PO SCH (08:00)
[2018-07-17] MEDS ORDERED: FOLIC ACID PO SCH (09:00)
[2018-07-17] MEDS ORDERED: FERROUS FUM PO SCH (09:00)
[2018-07-17] MEDS ORDERED: VALSARTAN 160 MG TAB PO SCH (09:00)
[2018-07-17] MEDS ORDERED: IRON PO SCH (09:00)
[2018-07-17] MEDS ORDERED: GABAPENTIN 100 MG CAP PO SCH (09:00)
[2018-07-17] MEDS ORDERED: [UNRECOGNIZED DRUG - OTHER] PO SCH (09:00)
[2018-07-17] MEDS: NIFEdipine ER 30 MG TAB PO SCH ×2 (09:41→20:18)
[2018-07-17] MEDS: CALCIUM ACETATE 667 MG CAP PO SCH ×3 (09:42→18:45)
[2018-07-17] MEDS: METOPROLOL TARTRATE 100 MG TAB PO SCH ×2 (09:43→18:59)
[2018-07-17] MEDS: INSULIN ASPART NovoLOG 70/30 100 UNITS/ML SYR SC SCH ×2 (09:44→20:18)
[2018-07-17] MEDS: INSULIN LISPRO 100 UNIT/ML SC SCH ×3 (09:49→19:12)
[2018-07-17] MEDS: LANTHANUM CARBONATE PO SCH ×3 (09:56→18:16)
--- NOTE | 2018-07-17 11:06 | GCON ---
NEPHROLOGY CONSULTATION DATE OF CONSULTATION: 07/17/2018 REASON FOR CONSULTATION: Syncope and cramping, end-stage renal disease. HISTORY OF PRESENT ILLNESS: The patient is a very pleasant 53-year-old male with a past medical hist ory significant for end-stage renal disease secondary to diabetes and hypertension. The patient pres ented with uremia approximately a year and a half ago, and dialysis was initiated at that time. Sin e that time, he has done relatively well. He dialyzes at the [facility] on a Saturday, Saturday, Saturday schedule. He is under the care of Dr. Lizy Blakely of [facility]. Th e patient is on the transplant list at [facility]. The patient's dialysis runs have been relatively stable. He reports occasional mild cramping, but no other issues. He has an AV fistula that has been working well. Yesterday, the patient underwent his dialysis in a routine fashion. Toward the end of dialysis, he d id have some cramping. At that time, his systolic blood pressure dropped to approximately 100. His ultrafiltration was reduced, and he was given a small amount of normal saline. This did resolve his cramps. The patient was discharged to home with a systolic blood pressure of 124/70. Of note, 3.7 L of fluid were removed. His dry weight was listed as 72.5, and he left at 74.4 kg. Upon returning home, the patient was fine until he ate lunch. Shortly thereafter, he began developin g cramps, some chest pressure, and dizziness. He did become fully syncopal. The patient ultimately was transported to the [facility]. He received some IV fluids and felt okay after that t indra. Here in the hospital, he has been hemodynamically stable, and his orthostatics have been negati ve. He has no current complaints and feels good overall. On further questioning with the patient, he does take some hydralazine following his dialysis runs. It does sound as if he did decompensate following lunch, after he ate and took his hydralazine. As r elated to the above issues, we are asked by the emergency service to assist the patient's renal diagn osis and management. PAST MEDICAL HISTORY: 1. End-stage renal disease secondary to diabetes. The patient did have a renal biopsy 1 year ago. 2. Diabetes type 1. 3. Hypertension. 4. Hyperlipidemia. PAST SURGICAL HISTORY: AV fistula placement. HOME MEDICATIONS: Hydralazine 50 mg t.i.d., except on dialysis days, when he takes 25 mg in morning, 25 mg at lunch, and 50 mg in the evening; valsartan 160 mg daily; nifedipine 30 mg b.i.d.; metoprolo l 100 mg b.i.d.; Tradjenta 5 mg daily; lanthanum carbonate with meals; insulin 70/30, 22 units subcu b.i.d.; gabapentin 100 mg daily; calcium acetate 667 mg tablets 2 tablets t.i.d. with meals; calcitri ol 0.25 mcg every Saturday, Saturday, and Saturday; atorvastatin 40 mg q.h.s. FAMILY HISTORY: The patient lives with his family. 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 He does not smoke cigarettes or drink alcohol. REVIEW OF SYSTEMS: A 12-systems review is obtained. The patient did have a headache yesterday, but otherwise does not have headaches. He is not having any infectious symptoms. He feels that he has o ccasional cough on dialysis. He has aforementioned occasional cramps on dialysis. He has decreased vision due to retinopathy. He has diabetes. He still makes some urine. The patient states he did h ave diarrhea for a period of time during 2016; this has improved. All of his other review of systems was negative. PHYSICAL EXAM: GENERAL: At time of exam, the patient is pleasant, appropriate, and alert. VITAL SI GNS: Temperature 36.8, pulse 77, blood pressure 137/70. HEENT: Eyes: Sclerae clear. Oropharynx c lear. NECK: No lymphadenopathy or thyromegaly. LUNGS: Clear to auscultation bilaterally. CARDIOV ASCULAR: Positive S4. Normal S1, S2. No murmurs, gallops, rubs. ABDOMEN: Nontender. UPPER EXTRE MITIES: The patient has left upper extremity fistula site looks good. /RECTAL: Deferred. LOWER EXTREMITIES: No edema. INTEGUMENT: Generally clear. NEURO: No focal findings. LABORATORY STUDIES: White count 6.3, hematocrit 29.5, platelets 200. Sodium 138, potassium 5.7, chl oride 93, bicarb 31, creatinine 8. Troponin unmeasurable. IMPRESSION AND PLAN: 1. Syncope following dialysis. The patient has typically been hemodynamically stable. At present, he looks excellent and has no complaints. Per his report, he had a negative stress test earlier in t he year. He has not been having significant cardiac symptoms or previous instability. 2. I really cannot find much different about yesterday's dialysis than the norm. However, we will m louise adjustments. I have already called the dialysis unit relating to these. We will increase his dr omar weight to 75 kg. We will cap his maximum ultrafiltration to 3 L net per treatment. The patient wi ll stop taking a dose of hydralazine following his dialysis on dialysis days. We will follow him wit h these changes. The patient is agreeable to the plan. 3. Hyperkalemia. The patient had an elevated potassium today, which is not expected. We will do a stat repeat of this. Pending this result, we will determine need for dialysis today versus following up with his outpatient dialysis tomorrow. 4. Anemia. This is within his expected range. 5. Diabetes. The patient's last hemoglobin A1c is 7.1, which is excellent for a patient on dialysis . Thank you for allowing us to participate in this gentleman's care. We will continue to follow him cl osely with you. /[id number]/MODL
--- NOTE | 2018-07-17 11:36 | CPR ---
DATE OF PROCEDURE: 07/17/2018 PROCEDURE: Treadmill stress test. REASON FOR TEST: Mild chest pain on admission, lightheadedness and weakness after dialysis yesterday. Resting EKG shows a regular sinus rhythm with an occasional PVC and occasional PAC. Ventricular rate 73. Resting blood pressure 142/86. He is asymptomatic prior to testing. STRESS PORTION: Treadmill stress test using the [place] protocol. He was exercised for a total of 9 minutes. Testing was stopped due to increased fatigue. EKG remained stable throughout testing. Occasional PAC was noted. No PVCs with testing. He had no chest pain, shortness of breath, or lightheadedness. Max blood pressure 166/84, max heart rate 100. His HR was Blunted with exercise. RECOVERY: He spontaneous recovered with his heart rate returning to 81. Recovery blood pressure 142/78. Recovery heart rate 79 with one PAC. There were no ischemic changes with testing. He is stable to return to his room with no further cardiac testing. /[id number]/MODL MTDD
[2018-07-17] MEDS ORDERED: PNEUMOCOCCAL 0.5ML VACCINE VIAL IM ONE (12:15)
[2018-07-17] MEDS: hydrALAZINE 25 MG TAB PO SCH ×2 (13:07→18:59)
--- NOTE | 2018-07-17 13:16 | HOSPPROG ---
Hospitalist Progress Note Assessment/Plan: DISCHARGE DIAGNOSES: * near-syncope * chest pain, resolved; ruled out for HI * suspected volume depletion after hemodialysis session * hypoglycemia episodes * hyperkalemia * nausea and vomiting CONSULTANTS: Dr. Fabricio Catherine PROCEDURES: Hemodialysis HOSPITAL COURSE SUMMARY: This patient came to the hospital after feeling chest pain lightheadedness weakness and malaise at the end of the dialysis session. He had a near syncope spell. There was some nausea and vomiting as well. Upon arrival here to the hospital the patient was feeling still very weak and tired. He was given IV fluids and responded very well to that feels back to normal at this time. It is felt that he had come to hypovolemia from this particular dialysis session. In addition the patient was taking hydralazine three times daily with a reduced dose of 25 mg after his dialysis sessions. Is recommended now that he skip that dose after dialysis sessions altogether. Additionally the patient did have hypoglycemia at the time of admission. It is unclear exactly how much this contribute to his symptoms but is felt that it probably did have a impact. He did not receive his nighttime insulin dose on the admission day. The following morning he did receive his insulin dose as usual, but not his Tradjenta as it is non formulary here and he did not bring it with him. Nonetheless he did have again at mid day today hypoglycemia in the 60s similar to his hypoglycemia in the 50s yesterday at the same time. At this point will be decreasing his insulin dose as discussed below. As the patient had chest discomfort and nausea vomiting with weakness and near syncope at the end of dialysis, and since he is diabetic and a renal failure patient with high risk for coronary disease, he underwent at treadmill stress testing here. This test was unremarkable with 9 min of exercise, good heart rate and blood pressure responses in recovery, absence of anginal symptoms, absence of ischemic EKG changes. This is a low risk test and unless more concerning cardiac sending symptoms developed further cardiac testing or risk stratification measures are not indicated at present PENDING TEST RESULTS: None MEDICATION CHANGES: He is instructed to not take his mid day hydralazine dose on dialysis days after the session Insulin dose decreased to 18 units twice daily FOLLOW-UP PLAN: At dialysis clinic on his usual Saturday schedule With his primary focused factory manager. He is instructed to keep careful monitoring of his midday sugars to be sure he is not having lows Greater than 35 minutes bedside and care coordination time today Objective: Vital Signs Temp Pulse Resp BP Pulse Ox 36.6 C 76 12 114/65 92 07/17/18 12:05 07/17/18 12:05 07/17/18 12:05 07/17/18 12:05 07/17/18 12:05 Laboratory Results 07/17/18 03:59 07/17/18 09:25 07/16/18 07/17/18 07/18/18 06:59 06:59 06:59 Intake Total 840 Output Total 25 Balance 815 PT 13.6 SEC (12.0-15.0) 07/16/18 13:06 INR 1.02 (0.83-1.16) 07/16/18 13:06 ICD10 Worksheet Patient Problems: Problems Problem Status Onset Chest pain Acute Syncope and collapse Acute Hyperkalemia Acute Renal failure, acute Acute Uremia Acute Volume overload Acute
--- NOTE | 2018-07-17 14:18 | ASMTCASEMG ---
Living Arrangements What is your living Answers: With Spouse arrangement? Who do you live with? Type Of Residence What kind of residence do Answers: Apartment you live in? Discharge Plan Comments Coordination Status Comments Notes: Pts case discussed in tx rounds. Pt is sinhala speaking only. Pt is a 53 y/o man admitted for syncope. Pt with a hx of ESRD. Pt goes to dialysis [facility]. Nephrology has been consulted. Pt will have a stress test at some point. Pt will most likely d/c independent when medically stable. No therapies ordered at this time. CM available for changes. Plan: Independent Date Signed: 07/17/2018 01:55 PM Electronically Signed By:ARIANA Recinos
--- NOTE | 2018-07-17 17:24 | PDDCSUM ---
Discharge Summary Discharge Summary: DISCHARGE DIAGNOSES: * near-syncope * chest pain, resolved; ruled out for RI * suspected volume depletion after hemodialysis session * hypoglycemia episodes * hyperkalemia * nausea and vomiting CONSULTANTS: Dr. Fabricio Catherine PROCEDURES: Hemodialysis HOSPITAL COURSE SUMMARY: This patient came to the hospital after feeling chest pain lightheadedness weakness and malaise at the end of the dialysis session. He had a near syncope spell. There was some nausea and vomiting as well. Upon arrival here to the hospital the patient was feeling still very weak and tired. He was given IV fluids and responded very well to that feels back to normal at this time. It is felt that he had come to hypovolemia from this particular dialysis session. In addition the patient was taking hydralazine three times daily with a reduced dose of 25 mg after his dialysis sessions. Is recommended now that he skip that dose after dialysis sessions altogether. Additionally the patient did have hypoglycemia at the time of admission. It is unclear exactly how much this contribute to his symptoms but is felt that it probably did have a impact. He did not receive his nighttime insulin dose on the admission day. The following morning he did receive his insulin dose as usual, but not his Tradjenta as it is non formulary here and he did not bring it with him. Nonetheless he did have again at mid day today hypoglycemia in the 60s similar to his hypoglycemia in the 50s yesterday at the same time. At this point will be decreasing his insulin dose as discussed below. As the patient had chest discomfort and nausea vomiting with weakness and near syncope at the end of dialysis, and since he is diabetic and a renal failure patient with high risk for coronary disease, he underwent at treadmill stress testing here. This test was unremarkable with 9 min of exercise, good heart rate and blood pressure responses in recovery, absence of anginal symptoms, absence of ischemic EKG changes. This is a low risk test and unless more concerning cardiac sending symptoms developed further cardiac testing or risk stratification measures are not indicated at present PENDING TEST RESULTS: None MEDICATION CHANGES: He is instructed to not take his mid day hydralazine dose on dialysis days after the session Insulin dose decreased to 18 units twice daily FOLLOW-UP PLAN: At dialysis clinic on his usual Saturday schedule With his primary wildlife refuge manager. He is instructed to keep careful monitoring of his midday sugars to be sure he is not having lows Greater than 35 minutes bedside and care coordination time today
[2018-07-17 19:43] VITALS: BP 138/78
[2018-07-17] MEDS: ATORVASTATIN CALCIUM 40 MG TAB PO SCH (20:14)
[2018-07-17 22:53] LABS: HEPATITIS B CORE AB TOTAL NEGATIVE (NEGATIVE); HEPATITIS B SURFACE ANTIGEN NEGATIVE (NEGATIVE)
[2018-07-18] MEDS ORDERED: CALCITRIOL 0.25 MCG CAP PO SCH (08:00)
== END 2018-07-17 20:23 | disposition home or self-care (01) ==
LOC: F2W 18:02
PROVIDERS: ADMIT Internal Medicine; ATTEND Internal Medicine
PROC: 5A1D70Z Performance of Urinary Filtration, Intermittent, Less than 6 Hours Per Day (ICD-10-PCS; principal; 2018-07-16)
DX: R07.9 Chest pain, unspecified (principal); R42 Dizziness and giddiness; E11.649 Type 2 diabetes mellitus with hypoglycemia without coma; E11.22 Type 2 diabetes mellitus with diabetic chronic kidney disease; N18.6 End stage renal disease; Z99.2 Dependence on renal dialysis; E87.5 Hyperkalemia; I10 Essential (primary) hypertension; Z23 Encounter for immunization
CPT/HCPCS: 71045; 90471; 90472; 93005; 93017; 96372; 99285; G0378; 84484-PO; 86704-90; G0008; G0009; J1815